=== PATIENT | female | born 1980 | race Caucasian/White ===

== ENCOUNTER 2016-12-18 20:07 | Emergency (ER) | payer OTHER ==
[2016-12-18] MEDS ORDERED: Cyclobenzaprine 10 MG Tab PO STA (20:26)
[2016-12-18] MEDS ORDERED: predniSONE 20 MG Tab PO STA (20:26)
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
[2016-12-18 21:07] VITALS: BP 111/71
== END 2016-12-18 21:08 | disposition home or self-care (01) ==
LOC: MW.ED 20:07
DX: S29.012A Strain of muscle and tendon of back wall of thorax, initial encounter (principal); S19.9XXA Unspecified injury of neck, initial encounter; M19.90 Unspecified osteoarthritis, unspecified site; F32.9 Major depressive disorder, single episode, unspecified; E03.9 Hypothyroidism, unspecified; F17.210 Nicotine dependence, cigarettes, uncomplicated; Z98.890 Other specified postprocedural states; Z79.899 Other long term (current) drug therapy; Z88.6 Allergy status to analgesic agent; Z88.8 Allergy status to other drugs, medicaments and biological substances; Z91.048 Other nonmedicinal substance allergy status; V49.9XXA Car occupant (driver) (passenger) injured in unspecified traffic accident, initial encounter; Y92.410 Unspecified street and highway as the place of occurrence of the external cause
CPT/HCPCS: 99283; A9270

== ENCOUNTER 2017-08-23 11:44 | Observation (INO) | payer BC, OTHER ==
[2017-08-23] MEDS ORDERED: Sodium Chloride 0.9% 2.5 ML Syringe FLUSH PRN (11:47)
[2017-08-23] MEDS ORDERED: Sodium Chloride 0.9% 10 ML Syringe FLUSH PRN (11:47)
[2017-08-23] MEDS ORDERED: Aspirin 81 MG Tab.Chew PO ONE (11:50)
[2017-08-23] MEDS ORDERED: Famotidine 20 MG/2 ML SDV IVPUSH ONE (11:50)
[2017-08-23] MEDS ORDERED: Sodium Chloride 0.9% 1,000 ML IV ONE (11:53)
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
[2017-08-23] MEDS: Nitroglycerin 0.4 MG Tab.SL SL PRN ×3 (12:08→12:18)
[2017-08-23] MEDS ORDERED: Acetaminophen 325 MG Tab PO ONE (12:23)
[2017-08-23 12:24] LABS: CHLORIDE,CL 104 mmol/L (98-107); SODIUM,NA 139 mmol/L (136-145)
--- NOTE | 2017-08-23 12:26 | CR ---
EXAMINATION: Portable chest radiograph. HISTORY: Shortness of breath. FINDINGS: The trachea is midline. The cardiomediastinal silhouette is within normal limits. No pulmonary infilt rates, effusions or pneumothorax. Osseous structures appear unremarkable. IMPRESSION: No acute cardiopulmonary process.
[2017-08-23] MEDS ORDERED: Acetaminophen 325 MG Tab PO PRN (13:55)
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
[2017-08-23] MEDS ORDERED: DESOGESTREL ETHINYL ESTRADIOL PO SCH (17:15)
[2017-08-23] MEDS ORDERED: Nitroglycerin 2% Oint 1 GM UD Packet TOP PRN (19:10)
[2017-08-23] MEDS ORDERED: Nicotine 21 MG/24 Hr Patch TRDERM SCH (19:15)
[2017-08-23] MEDS ORDERED: busPIRone 5 MG Tab PO SCH ×2 (21:00)
[2017-08-23] MEDS ORDERED: DESVENLAFAXINE 100 MG PO SCH (21:00)
[2017-08-23] MEDS ORDERED: Levothyroxine 50 MCG Tab PO SCH (21:00)
[2017-08-24 05:55] VITALS: BP 132/70
[2017-08-24] MEDS ORDERED: Levothyroxine 50 MCG Tab PO SCH (07:30)
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
[2017-08-24] MEDS ORDERED: Desvenlafaxine [Pristiq] 100 MG PO SCH (09:00)
== END 2017-08-24 08:25 | disposition home or self-care (01) ==
LOC: MW.ED 11:44 → MW.MS 12:55
PROVIDERS: ADMIT Internal Medicine; ATTEND Internal Medicine
DX: R07.89 Other chest pain (principal); F32.9 Major depressive disorder, single episode, unspecified; F41.9 Anxiety disorder, unspecified; F43.10 Post-traumatic stress disorder, unspecified; F17.210 Nicotine dependence, cigarettes, uncomplicated; M19.90 Unspecified osteoarthritis, unspecified site; G43.909 Migraine, unspecified, not intractable, without status migrainosus; E03.9 Hypothyroidism, unspecified; E66.9 Obesity, unspecified; Z68.32 Body mass index [BMI] 32.0-32.9, adult; Z79.3 Long term (current) use of hormonal contraceptives; Z79.899 Other long term (current) drug therapy; Z88.5 Allergy status to narcotic agent; Z91.013 Allergy to seafood; Z91.048 Other nonmedicinal substance allergy status
CPT/HCPCS: 36415; 71045; 80053; 80061; 80305; 81001; 81025; 82150; 83036; 83690; 84443; 84484; 85025; 85379; 85610; 93005; 96361; 96374; 99285; A9270; G0378; J7040

== ENCOUNTER 2018-03-12 15:57 | Day surgery (SDC) | payer BC ==
[2018-03-11 09:38] LABS: CHLORIDE,CL 102 mmol/L (98-107); SODIUM,NA 137 mmol/L (136-145)
--- NOTE | 2018-03-12 09:37 | PCM.PREANE ---
Preanesthetic Assessment - Anesthesia/Transfusion/Family Hx Anesthesia History: Prior Anesthesia Reaction (only had delayed emergence with ONE anesthetic in the for knee surgery. No other problems with her subsequent anesthetics.) Transfusion History: No Prior Transfusion(s) - Review of Systems General: No Symptoms Pulmonary: No Symptoms Cardiovascular: No Symptoms Gastrointestinal: No Symptoms Neurological: No Symptoms Other: Reports: None - Physical Assessment NPO Status Date: 03/19/18 NPO Status Time: 08:00 (ativan) Height: 1.57 m Weight: 78.471 kg ASA Class: 2 Mental Status: Alert & Oriented x3 Airway Class: Mallampati = 2 Dentition: Reports: Broken Tooth/Teeth (right upper center tooth repaired. ) Thyro-Mental Finger Breadths: 2 Mouth Opening Finger Breadths: 3 ROM/Head Extension: Full Lungs: Clear to Auscultation, Normal Respiratory Effort Cardiovascular: Regular Rate, Regular Rhythm - Lab Values: Laboratory Last Values WBC 8.48 K/uL (4.0-11.0) 03/11/18 08:57 RBC 5.00 M/uL (4.30-5.90) 03/11/18 08:57 Hgb 15.3 g/dL (12.0-16.0) 03/11/18 08:57 Hct 44.6 % (36.0-46.0) 03/11/18 08:57 MCV 89.2 fL (80.0-98.0) 03/11/18 08:57 MCH 30.6 pg (27.0-32.0) 03/11/18 08:57 MCHC 34.3 g/dL (31.0-37.0) 03/11/18 08:57 RDW Std Deviation 41.6 fl (28.0-62.0) 03/11/18 08:57 RDW Coeff of Radha 13 % (11.0-15.0) 03/11/18 08:57 Plt Count 262 K/uL (150-400) 03/11/18 08:57 MPV 10.00 fL (7.40-12.00) 03/11/18 08:57 Nucleated RBC % 0.0 /100WBC 03/11/18 08:57 Nucleated RBCs # 0 K/uL 03/11/18 08:57 Sodium 137 mmol/L (136-145) 03/11/18 08:57 Potassium 3.7 mmol/L (3.5-5.1) 03/11/18 08:57 Chloride 102 mmol/L (98-107) 03/11/18 08:57 Carbon Dioxide 26.0 mmol/L (21.0-32.0) 03/11/18 08:57 BUN 11 mg/dL (7.0-18.0) 03/11/18 08:57 Creatinine 0.7 mg/dL (0.6-1.0) 03/11/18 08:57 Est Cr Clr Drug Dosing 87.03 mL/min 03/11/18 08:57 Estimated GFR (MDRD) > 60.0 ml/min 03/11/18 08:57 Glucose 118 mg/dL (74-106) H 03/11/18 08:57 Calcium 9.8 mg/dL (8.5-10.1) 03/11/18 08:57 Total Bilirubin 0.4 mg/dL (0.2-1.0) 03/11/18 08:57 AST 10 IU/L (15-37) L 03/11/18 08:57 ALT 34 IU/L (14-63) 03/11/18 08:57 Alkaline Phosphatase 79 U/L (46-116) 03/11/18 08:57 Total Protein 8.0 g/dL (6.4-8.2) 03/11/18 08:57 Albumin 4.0 g/dL (3.4-5.0) 03/11/18 08:57 Globulin 4.0 g/dL (2.6-4.0) 03/11/18 08:57 Albumin/Globulin Ratio 1.0 (0.9-1.6) 03/11/18 08:57 HCG, Qual NEGATIVE (NEG) 03/11/18 08:57 Blood Type AB POSITIVE 03/11/18 08:57 Antibody Screen NEGATIVE 03/11/18 08:57 - Allergies Allergies/Adverse Reactions: Allergies Allergy/AdvReac Type Severity Reaction Status Date / Time hydrocodone bitartrate Allergy Anaphylactic Verified 03/07/18 09:55 [From Vicodin] Shock crab Allergy Vomiting Uncoded 03/07/18 09:55 ivory soap Allergy Hives Uncoded 03/07/18 09:55 - Acknowledgements Anesthesia Type Planned: General Anesthesia Pt an Appropriate Candidate for the Planned Anesthesia: Yes Alternatives and Risks of Anesthesia Discussed w Pt/Guardian: Yes Pt/Guardian Understands and Agrees with Anesthesia Plan: Yes PreAnesthesia Questionnaire HEENT History: Reports: None Cardiovascular History: Reports: Arrhythmia (ekg sinus rhythm, rate=88, was evaluated and started on anti-htn agents and symptoms resolved.), Hypertension Other Cardiovascular History: hx of palpitations Respiratory History: Reports: Bronchitis, Recurrent (has not used her inhalers since May 2017), Other (See Below) (chronic tobacco use) Gastrointestinal History: Reports: Other (See Below) (denies gerd) Other Gastrointestinal History: hx gastric ulcer as a child Genitourinary History: Reports: None [employer]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: Dysfunctional Uterine Bleeding, Musculoskeletal History: Reports: Arthritis Other Musculoskeletal History: states arthritis to knees and neck Neurological History: Reports: Migraines Psychiatric History: Reports: Anxiety, Depression, PTSD Endocrine/Metabolic History: Reports: Hypothyroidism, Obesity/BMI 30+ Hematologic History: Reports: None Immunologic History: Reports: None Oncologic (Cancer) History: Reports: None Dermatologic History: Reports: None - Infectious Disease History Infectious Disease History: Reports: Chicken Pox - Past Surgical History HEENT Surgical History: Reports: Naso-Sinus Surgery, Tonsillectomy GI Surgical History: Reports: Cholecystectomy Musculoskeletal Surgical History: Reports: Arthroscopic Procedure, Other (See Below) (left hand surgery) Other Musculoskeletal Surgeries/Procedures:: left knee surgery Other Surgical History Comment: wisdom teeth extraction - SUBSTANCE USE Smoking Status *Q: Current Every Day Smoker Tobacco Use Within Last Twelve Months: Cigarettes Recreational Drug Use History: Yes Recreational Drug Type: Reports: Marijuana/Hashish (last used yesterday) - HOME MEDS Home Medications: Home Meds Levothyroxine 50 mcg PO BEDTIME 12/16/13 [History] Desvenlafaxine [Pristiq] 100 mg PO BEDTIME 01/10/15 [History] busPIRone [Buspar] 30 mg PO BEDTIME 01/10/15 [History] Diclofenac Sodium 1 dose TOP QID 03/07/18 [History] Hydrochlorothiazide/Losartan [Hyzaar 50-12.5 MG] 1 tab PO DAILY 03/07/18 [ History] Lidocaine/Prilocaine [Lidocaine-Prilocaine Cream] 1 applic TOP ASDIRECTED PRN [History] Norethindrone 0.35 mg PO DAILY 03/07/18 [History] - CURRENT (IN HOUSE) MEDS Current Meds: Current Medications Lactated Ringer's (Ringers, Lactated) 1,000 mls @ 125 mls/hr IV ASDIRECTED [facility] Last Admin: 03/12/18 09:18 Dose: 125 mls/hr
--- NOTE | 2018-03-12 12:05 | PCM.OPNOTE ---
- General Post-Op/Procedure Note Date of Surgery/Procedure: 03/12/18 Operative Procedure(s): total vaginal hysterectomy with left salpingoophorectomy and cystoscopy Findings: 10 week size fibroid uterus, enlarged 5 cm left ovary, frible. Good flow from bilateral ureters on cystoscopy Pre Op Diagnosis: menorrhagia, uterine fibroids, left ovarian cyst. Post-Op Diagnosis: Same Anesthesia Technique: General ET Tube Primary Surgeon: Marimar Padron Secondary Surgeon: Mery Bhat Anesthesia Provider: Chris Granados Pathology: uterus with cervix, left tube and ovary Fluid Replacement, Intraop: 1,500 Output, Urine Amount: 100 EBL in mLs: 100 Complications: None Known Condition: Good
[2018-03-12] MEDS: Morphine 4 MG/ML Syringe IVPUSH PRN ×5 (12:34→13:09)
--- NOTE | 2018-03-12 13:11 | PCM.POSTAN ---
POST ANESTHESIA ASSESSMENT - MENTAL STATUS Mental Status: Alert, Oriented - RESPIRATORY Respiratory Status: Respiratory Rate WNL, Airway Patent, O2 Saturation Stable - CARDIOVASCULAR CV Status: Pulse Rate WNL, Blood Pressure Stable - GASTROINTESTINAL GI Status: No Symptoms - POST OP HYDRATION Hydration Status: Adequate & Stable - OBSERVATIONS Free Text/Narrative:: pt c/o persistant pain but sedation prohibits further narcotics at this time. Have treated with iv tylenol and Toradol. If increased parenteral narcotics are required for post op pain controll, I would recommend close observation with ETCO2 and SPO2 monitoring, perhaps in ICU.
--- NOTE | 2018-03-12 13:22 | PCM48HPAN ---
Post Anesthesia Note - EVALUATION WITHIN 48HRS OF ANESTHETIC Vital Signs in Normal Range: Yes Patient Participated in Evaluation: Yes Respiratory Function Stable: Yes Airway Patent: Yes Cardiovascular Function Stable: Yes Hydration Status Stable: Yes Pain Control Satisfactory: Yes Nausea and Vomiting Control Satisfactory: Yes Mental Status Recovered: Yes Pulse Rate: 92 SaO2: 97 Resp Rate: 16 Blood Pressure: 122/82 - COMMENTS/OBSERVATIONS Free Text/Narrative:: patient had nausea from vicodin, and this is charted as anaphylactic reaction to hydrocodone. Patient doing well when left alone and not stimulated. Significant history with pain symptoms in the past which were resolved without pain meds. Has had fentanyl, morphine, tylenol and toradol for pain in OR/PACU. Doing well overall.
--- NOTE | 2018-03-12 15:34 | OR ---
SURGEON: Marimar Padron M.D. DATE OF PROCEDURE: 03/12/2018 PREOPERATIVE DIAGNOSES: 1. Menorrhagia. 2. Uterine fibroids. 3. Left ovarian cyst. POSTOPERATIVE DIAGNOSES: 1. Menorrhagia. 2. Uterine fibroids. 3. Left ovarian cyst. PROCEDURE: Total vaginal hysterectomy with left salpingo-oophorectomy and cystoscopy. SALES ORDER ADMINISTRATOR: Mery Bhat M.D. ANESTHESIA: General endotracheal. FLUIDS: 1500 mL crystalloid. URINE OUTPUT: 100 mL. ESTIMATED BLOOD LOSS: 100 mL. FINDINGS: Uterus enlarged to 10 week size. Multiple uterine fibroids noted. The left ovary was enlarged to 5 cm and was removed. It was also fairly friable upon inspection. The right ovary and tube appeared normal. Upon cystoscopy, there was copious flow of bright green urine from bilateral ureteral orifices. There was no evidence of any trauma to the bladder mucosa. COMPLICATIONS: None known. DISPOSITION: Stable to recovery. BRIEF HISTORY: This is a 37-year-old female she is G3, P3. She presents with heavy periods with episodes of overflowing. This is also associated with pain during intercourse with deep penetration and severe cramping during and between her periods. She had an ultrasound ordered by Mia Castano, which showed a 3-cm right posterior fibroid, 1-cm submucosal fibroid. Endometrial thickness was 3 mm. Her bleeding has not been well controlled on oral progestin therapy and she desires to proceed with a hysterectomy. She is very concerned about a right ovarian cyst. Ultrasound was repeated as the original ultrasound was from February. This ultrasound shows a left ovarian cyst, complex in nature. One cyst measuring 2.2. The other cyst measuring 2.8 cm. I had a prolonged discussion with her regarding the ovaries as initially she said she just wanted both ovaries out. However, I explained the ovaries fulfil an important role for her and she would be surgically menopausal, which could be difficult to manage at this young age. I explained that if her ovaries appear significantly abnormal at the time of surgery that I can remove it. Alternatively, she could have a followup ultrasound in 6 weeks and very likely this is a physiologic cyst and will be resolved on its own. However, if the ovary continues to appear abnormal at the time of surgery, she does desire to have it removed. Surgical risks were discussed otherwise including bleeding, infection, injury to bowel, bladder, blood vessels, ureters or other organs, risk of thromboembolic event, risk of anesthesia, risk of change in sexual function. Understanding all these risks, she does desire to proceed. DESCRIPTION OF PROCEDURE: With the patient in dorsal lithotomy position, under adequate general endotracheal anesthesia, the abdomen, perineum, and vagina were prepped and draped in the usual fashion for vaginal surgery. SCDs were in place, Meza catheter had been in place. She received 2 g of Ancef IV. After appropriate time-out was held, weighted speculum was placed posteriorly and anterior retractor was placed. The cervix was grasped with Daylin tenaculum and circumscribed using electrocautery. The anterior cul-de-sac was easily entered using Metzenbaum scissors. The right-angled retractor was placed anteriorly. The posterior cul-de-sac was easily entered and a Jacey Auvard speculum was placed posteriorly. The uterosacral ligaments were doubly clamped, cut, and ligated using a free tie followed by Don ligature of 2-0 Polysorb. A second pedicle of the cardinal ligament complex was then doubly clamped, cut, and ligated incorporating the uterine vessels using a simple tie followed by a Don ligature of 2-0 Polysorb. The remainder utero-ovarian ligaments were then cross clamped, cut, doubly clamped and ligated using a free tie followed by a 3 point ligature of 2-0 Polysorb. The right ovary and tube were carefully inspected, appeared normal. The right pedicles were carefully inspected and were all hemostatic. The left tube and ovary were inspected. The left tube appeared normal. The left ovary was enlarged to approximately 5 cm. Upon inspection, the cyst did rupture. This fluid was collected and sent for cytology and I attempted to identify the cyst wall. However, the ovary itself and the cyst were extremely friable. Therefore, decision was made to proceed with removal of the left ovary per the patient's wishes. Therefore, the infundibulopelvic ligament was doubly clamped, cut, and the tube and ovary were removed. The pedicle was ligated using a free tie followed by a 3 point ligature of 2-0 Polysorb. This was retained for inspection. The pedicles were carefully inspected. The upper pedicles were normal and were released and were hemostatic. Adjacent to the left uterosacral ligament, there was some bleeding. This was clamped with a Rekha clamp, and ligated using a Don ligature of 2-0 Polysorb. This being completed, the area was hemostatic. The retained uterosacral ligament ligatures were ligated to the vaginal apices bilaterally. Careful inspection for hemostasis was completed with confirmation of complete hemostasis from all pedicles. Therefore, the vaginal mucosa was closed with a running lock suture of 0 Polysorb. The balloon of the Meza was deflated. The Meza catheter was removed and IV fluorescein was given as well as Lasix and there was copious flow of bright green urine from bilateral ureteral orifices upon cystoscopy and there was no evidence of any trauma to the bladder mucosa, therefore the bladder was drained. The Meza catheter was replaced. The speculum was used to inspect the vaginal cuff, which was hemostatic. Final sponge, needle, and instrument counts were reported as correct. There were no known complications. The patient was transferred to recovery in good condition. ALEJANDRO PINEDA /[id number]
[~2018-03-12 15:57] MED LIST: Acetaminophen 1,000 MG in Premix Bag 1 BAG IV ONE; Acetaminophen/oxyCODONE 325-5 MG Tab PO PRN; Dexamethasone 4 MG/ML 5 ML MDV ONE; Fluorescein 5 ML Vial ONE; Furosemide 40 MG/4 ML VIAL ONE; Glycopyrrolate 0.2 MG/ML SDV ONE; HYDROmorphone 2 MG/ML SDV IVPUSH PRN; Ketorolac 30 MG/ML SDV IVPUSH ONE; Lactated Ringers 1,000 ML IV SCH; Lidocaine/Prilocaine 2.5-2.5% Crm 5 GM Kit TOP PRN; Meperidine PF 25 MG/ML Syringe IVPUSH SCH; Midazolam 1 MG/ML 2 ML SDV ONE; Morphine 4 MG/ML Syringe IVPUSH PRN; Neostigmine Methylsulfate 1 MG/ML 5 ML Syringe ONE; Ondansetron 4 MG/2 ML SDV IVPUSH PRN; Ondansetron 4 MG/2 ML SDV ONE; Phenylephrine/Normal Saline 100 MCG/ML 10 ML Syringe ONE; Promethazine 25 MG/ML SDV IM PRN; Propofol 200 MG/20 ML SDV ONE; Rocuronium 10 MG/ML 10 ML Syringe ONE; diphenhydrAMINE 50 MG/ML SDV ONE; fentaNYL 100 MCG/2 ML SDV ONE
[2018-03-12] MEDS: Ketorolac 30 MG/ML SDV IVPUSH PRN (16:23)
[2018-03-12] MEDS: Acetaminophen/oxyCODONE 325-5 MG Tab PO PRN ×2 (17:41→22:18)
--- NOTE | 2018-03-12 17:43 | PCM.SN ---
- Free Text/Narrative Note: discussed operative findings, and removal of left ovary as it was markedly enlarged and friable. Pain is not well controlled. Required a large amount of narcotics in postop per anesthesiologist. She has had ketorolac 1 hour ago and will take second percocet now, will get her own heating pad from home. May have catheter out tonight. Vitals are stable, encourage out of bed tonight if possible. Continue postop care.
[2018-03-12] MEDS ORDERED: Levothyroxine 75 MCG Tab PO SCH (21:00)
[2018-03-12] MEDS ORDERED: Desvenlafaxine [Pristiq] 100 MG PO SCH (21:00)
[2018-03-12] MEDS ORDERED: busPIRone 5 MG Tab PO SCH (21:00)
[2018-03-13] MEDS: Morphine 4 MG/ML Syringe IVPUSH PRN (00:37)
[2018-03-13] MEDS ORDERED: diphenhydrAMINE 12.5 MG/5 ML Liquid 5 ML UD Cup PO PRN (01:08)
[2018-03-13] MEDS ORDERED: Docusate Sodium 100 MG Cap PO PRN (01:10)
[2018-03-13] MEDS: Ketorolac 30 MG/ML SDV IVPUSH PRN (04:00)
[2018-03-13 06:03] LABS: CHLORIDE,CL 105 mmol/L (98-107); SODIUM,NA 142 mmol/L (136-145)
[2018-03-13] MEDS: Acetaminophen/oxyCODONE 325-5 MG Tab PO PRN (07:49)
[2018-03-13 08:17] VITALS: BP 94/52
--- NOTE | 2018-03-13 08:23 | PCM.SURGPN ---
- General Info Date of Service: 03/13/18 Date of Surgery/Procedure: 03/12/18 POD#: 1 Post-Op Diagnosis: uterine fibroids, ovarian cyst Admission Diagnosis/Problem: Leiomyoma of uterus Functional Status: Reports: Tolerating Diet, Ambulating, Urinating. Denies: Pain Controlled (fairly well controlled, able to ambulate using non medication means to help including heating pad) - Review of Systems General: Reports: No Symptoms HEENT: Reports: No Symptoms Pulmonary: Reports: No Symptoms Cardiovascular: Reports: No Symptoms Gastrointestinal: Reports: Other (has passed small amount of gas, slightly painful) Genitourinary: Reports: No Symptoms Musculoskeletal: Reports: No Symptoms Skin: Reports: No Symptoms Neurological: Reports: No Symptoms Psychiatric: Reports: No Symptoms - Patient Data Vitals - Most Recent: Last Vital Signs Temp 36.8 C 03/13/18 08:00 Pulse 76 03/13/18 08:00 Resp 14 03/13/18 08:00 BP 94/52 L 03/13/18 08:00 Pulse Ox 96 03/13/18 08:00 Weight - Most Recent: 78.471 kg I&O - Last 24 Hours: Intake & Output 03/12/18 03/13/18 03/13/18 22:59 06:59 14:59 Intake Total 446 1580 Output Total 250 2350 Balance 196 -770 Lab Results Last 24 Hrs: Laboratory Results - last 24 hr 03/13/18 03/13/18 Range/Units 05:15 05:15 WBC 15.62 H (4.0-11.0) K/uL RBC 4.09 L (4.30-5.90) M/uL Hgb 12.3 (12.0-16.0) g/dL Hct 36.5 (36.0-46.0) % MCV 89.2 (80.0-98.0) fL MCH 30.1 (27.0-32.0) pg MCHC 33.7 (31.0-37.0) g/dL RDW Std Deviation 41.3 (28.0-62.0) fl RDW Coeff of Radha 13 (11.0-15.0) % Plt Count 269 (150-400) K/uL MPV 10.40 (7.40-12.00) fL Neut % (Auto) 79.9 (48.0-80.0) % Lymph % (Auto) 14.0 L (16.0-40.0) % [place] % (Auto) 5.9 (0.0-15.0) % Eos % (Auto) 0.1 (0.0-7.0) % Baso % (Auto) 0.1 (0.0-1.5) % Neut # (Auto) 12.5 H (1.4-5.7) K/uL Lymph # (Auto) 2.2 (0.6-2.4) K/uL [place] # (Auto) 0.9 H (0.0-0.8) K/uL Eos # (Auto) 0.0 (0.0-0.7) K/uL Baso # (Auto) 0.0 (0.0-0.1) K/uL Nucleated RBC % 0.0 /100WBC Nucleated RBCs # 0 K/uL Sodium 142 (136-145) mmol/L Potassium 3.4 L (3.5-5.1) mmol/L Chloride 105 (98-107) mmol/L Carbon Dioxide 28.9 (21.0-32.0) mmol/L BUN 8 (7.0-18.0) mg/dL Creatinine 0.7 (0.6-1.0) mg/dL Est Cr Clr Drug Dosing 87.03 mL/min Estimated GFR (MDRD) > 60.0 ml/min Glucose 139 H (74-106) mg/dL Calcium 9.3 (8.5-10.1) mg/dL Med Orders - Current: Current Medications Buspirone HCl (Buspar) 30 mg PO BEDTIME [facility] Last Admin: 03/12/18 20:34 Dose: Not Given Diphenhydramine HCl (Benadryl) 25 - 50 mg PO Q6H PRN PRN Reason: Itching Last Admin: 03/13/18 03:59 Dose: 25 mg Docusate Sodium (Colace) 100 mg PO BID PRN PRN Reason: Constipation Last Admin: 03/13/18 04:00 Dose: 100 mg HCTZ/Losartan Potassium (Hyzaar 50-12.5 Mg) 1 tab PO DAILY [facility] Last Admin: 03/12/18 20:36 Dose: 1 tab Lactated Ringer's (Ringers, Lactated) 1,000 mls @ 125 mls/hr IV ASDIRECTED [facility] Last Admin: 03/12/18 09:18 Dose: 125 mls/hr Ketorolac Tromethamine (Toradol) 30 mg IVPUSH Q6H PRN PRN Reason: Pain (severe 7-10) Stop: 03/17/18 12:06 Last Admin: 03/13/18 04:00 Dose: 30 mg Levothyroxine Sodium (Levothyroxine) 50 mcg PO BEDTIME [facility] Last Admin: 03/12/18 20:35 Dose: Not Given Lidocaine/Prilocaine (Emla Crm) 1 gm TOP ASDIRECTED PRN PRN Reason: Pain Morphine Sulfate (Morphine) 4 mg IVPUSH Q10M PRN PRN Reason: Pain (severe 7-10) Stop: 03/13/18 11:51 Last Admin: 03/13/18 00:37 Dose: 4 mg Morphine Sulfate (Morphine Sulfate) 4 mg IV Q2H PRN PRN Reason: Pain (severe 7-10) Last Admin: 03/13/18 05:50 Dose: 4 mg Ondansetron HCl (Zofran) 4 mg IVPUSH Q6H PRN PRN Reason: Nausea/Vomiting Oxycodone/Acetaminophen (Percocet 325-5 Mg) 1 tab PO Q4H PRN PRN Reason: Pain (moderate 4-6) Last Admin: 03/12/18 17:10 Dose: 1 tab Oxycodone/Acetaminophen (Percocet 325-5 Mg) 2 tab PO Q4H PRN PRN Reason: Pain (moderate 4-6) Last Admin: 03/13/18 07:49 Dose: 2 tab Desvenlafaxine [ (Pristiq] 100 Mg) 100 each PO BEDTIME [facility] Last Admin: 03/12/18 20:35 Dose: Not Given Diclofenac Sodium 1 each TOP QID [facility] Last Admin: 03/13/18 06:04 Dose: Not Given Promethazine HCl (Phenergan) 25 mg IM Q6H PRN PRN Reason: Nausea/Vomiting Discontinued Medications Dexamethasone (Dexamethasone) Confirm Administered Dose 20 mg .ROUTE .STK-MED ONE Stop: 03/12/18 10:40 Diphenhydramine HCl (Benadryl) Confirm Administered Dose 50 mg .ROUTE .STK-MED ONE Stop: 03/12/18 10:39 Fentanyl (Sublimaze) Confirm Administered Dose 100 mcg .ROUTE .STK-MED ONE Stop: 03/12/18 10:42 Fluorescein Sodium (Ak-Fluor) Confirm Administered Dose 5 ml .ROUTE .STK-MED ONE Stop: 03/12/18 11:08 Furosemide (Lasix) Confirm Administered Dose 40 mg .ROUTE .STK-MED ONE Stop: 03/12/18 11:10 Glycopyrrolate (Robinul) Confirm Administered Dose 0.2 mg .ROUTE .STK-MED ONE Stop: 03/12/18 11:22 Glycopyrrolate (Robinul) Confirm Administered Dose 0.2 mg .ROUTE .STK-MED ONE Stop: 03/12/18 11:22 Lidocaine HCl (Xylocaine-Mpf 1%) Confirm Administered Dose 5 mls @ as directed .ROUTE .STK-MED ONE Stop: 03/12/18 10:39 Acetaminophen 1,000 mg/ Premix 100 mls @ 400 mls/hr IV NOW ONE Stop: 03/12/18 12:56 Last Admin: 03/12/18 12:53 Dose: 400 mls/hr Acetaminophen (Ofirmev) Confirm Administered Dose 100 mls @ as directed IV .STK- MED ONE Stop: 03/12/18 12:51 Last Admin: 03/12/18 16:35 Dose: Not Given Ketorolac Tromethamine (Toradol) 30 mg IVPUSH ONETIME ONE Stop: 03/12/18 12:07 Last Admin: 03/12/18 12:22 Dose: 30 mg Meperidine HCl (Demerol) 12.5 mg IVPUSH .ONCE JACE Stop: 03/12/18 23:59 Midazolam HCl (Versed 1 Mg/Ml) Confirm Administered Dose 2 mg .ROUTE .STK-MED ONE Stop: 03/12/18 10:41 Morphine Sulfate (Morphine) 4 mg IVPUSH Q2H PRN PRN Reason: Pain (severe 7-10) Neostigmine Methylsulfate (Neostigmine) Confirm Administered Dose 5 mg .ROUTE .STK-MED ONE Stop: 03/12/18 11:22 Ondansetron HCl (Zofran) Confirm Administered Dose 4 mg .ROUTE .STK-MED ONE Stop: 03/12/18 10:40 Phenylephrine HCl (Phenylephrine In Ns 100 Mcg/Ml) Confirm Administered Dose 1 mg .ROUTE .STK-MED ONE Stop: 03/12/18 10:40 Propofol (Diprivan 20 Ml) Confirm Administered Dose 200 mg .ROUTE .STK-MED ONE Stop: 03/12/18 10:41 Rocuronium [place] (Zemuron) Confirm Administered Dose 100 mg .ROUTE .STK-MED ONE Stop: 03/12/18 10:40 - Exam General: Alert HEENT: Pupils Equal Lungs: Clear to Auscultation, Normal Respiratory Effort Cardiovascular: Regular Rate, Regular Rhythm GI/Abdominal Exam: Normal Bowel Sounds, Soft, Non-Tender, No Organomegaly, No Mass Extremities: Normal Inspection, Non-Tender, No Pedal Edema Skin: Warm Neurological: No New Focal Deficit Psy/Mental Status: Alert, Normal Affect, Normal Mood - Problem List & Annotations (1) Leiomyoma SNOMED Code(s): 498367431247451, 676596416875464 Code(s): D21.9 - BENIGN NEOPLASM OF CONNECTIVE AND OTHER SOFT TISSUE, UNSP Status: Acute Current Visit: Yes (2) Menorrhagia SNOMED Code(s): 470261462 Code(s): N92.0 - EXCESSIVE AND FREQUENT MENSTRUATION WITH REGULAR CYCLE Status: Acute Current Visit: Yes (3) Ovarian cyst SNOMED Code(s): 49341922 Code(s): N83.209 - UNSPECIFIED OVARIAN CYST, UNSPECIFIED SIDE Status: Acute Current Visit: Yes - Problem List Review Problem List Initiated/Reviewed/Updated: Yes - My Orders Last 24 Hours: Active Orders 24 hr Category Date Time Status Patient Status [ADT] Routine ADT 03/12/18 12:06 Active Communication Order [RC] ROUTINE Care 03/12/18 22:23 Active May Shower [RC] ASDIRECTED Care 03/12/18 12:06 Active Notify Provider Intake and Out [RC] ASDIRECTED Care 03/12/18 12:06 Active Notify Provider Vital Signs [RC] ASDIRECTED Care 03/12/18 12:06 Active Oxygen Therapy [RC] ASDIRECTED Care 03/12/18 12:06 Active RT Incentive Spirometry [RC] Q2HWA Care 03/12/18 12:06 Active Up With Assistance [RC] PER UNIT ROUTINE Care 03/12/18 12:06 Active Up ad Lakesha [RC] PER UNIT ROUTINE Care 03/12/18 12:06 Active Urinary Catheter Removal [RC] Per Unit Routine Care 03/12/18 12:06 Active Vital Signs [RC] PER UNIT ROUTINE Care 03/12/18 12:06 Active Regular Diet [DIET] Diet 03/12/18 Dinner Active Acetaminophen/oxyCODONE [Percocet 325-5 MG] Med 03/12/18 12:06 Active 1 tab PO Q4H PRN Acetaminophen/oxyCODONE [Percocet 325-5 MG] Med 03/12/18 12:06 Active 2 tab PO Q4H PRN Docusate Sodium [Colace] Med 03/13/18 01:10 Active 100 mg PO BID PRN Hydrochlorothiazide/Losartan [Hyzaar 50-12.5 MG] Med 03/13/18 09:00 Active 1 tab PO DAILY Ketorolac [Toradol] Med 03/12/18 12:06 Active 30 mg IVPUSH Q6H PRN Lactated Ringers [Ringers, Lactated] 1,000 ml Med 03/12/18 08:00 Active IV ASDIRECTED Levothyroxine Med 03/12/18 21:00 Active 50 mcg PO BEDTIME Lidocaine/Prilocaine [EMLA Crm] Med 03/12/18 12:10 Active 1 gm TOP ASDIRECTED PRN Morphine Med 03/12/18 11:50 Active 4 mg IVPUSH Q10M PRN Morphine Sulfate Med 03/12/18 15:13 Active 4 mg IV Q2H PRN Ondansetron [Zofran] Med 03/12/18 12:06 Active 4 mg IVPUSH Q6H PRN Patient's Own Medication [Ptom] Med 03/12/18 18:00 Active 1 each TOP QID Patient's Own Medication [Ptom] Med 03/12/18 21:00 Active 100 each PO BEDTIME Promethazine [Phenergan] Med 03/12/18 12:06 Active 25 mg IM Q6H PRN busPIRone [Buspar] Med 03/12/18 21:00 Active 30 mg PO BEDTIME diphenhydrAMINE [Benadryl] Med 03/13/18 01:08 Active 25 - 50 mg PO Q6H PRN Peripheral IV Discontinue [OM.PC] Routine Oth 03/12/18 12:06 Ordered Sequential Compression Device [OM.PC] Per Unit Routine Oth 03/12/18 12:06 Ordered Sequential Compression Device [OM.PC] Routine Oth 03/12/18 07:49 Ordered Resuscitation Status Routine Resus Stat 03/12/18 12:06 Ordered Medication Orders Buspirone HCl (Buspar) 30 mg PO BEDTIME [facility] Last Admin: 03/12/18 20:34 Dose: Diphenhydramine HCl (Benadryl) 25 - 50 mg PO Q6H PRN PRN Reason: Itching Last Admin: 03/13/18 03:59 Dose: 25 mg Docusate Sodium (Colace) 100 mg PO BID PRN PRN Reason: Constipation Last Admin: 03/13/18 04:00 Dose: 100 mg HCTZ/Losartan Potassium (Hyzaar 50-12.5 Mg) 1 tab PO DAILY [facility] Last Admin: 03/12/18 20:36 Dose: 1 tab Lactated Ringer's (Ringers, Lactated) 1,000 mls @ 125 mls/hr IV ASDIRECTED [facility] Last Admin: 03/12/18 09:18 Dose: 125 mls/hr Ketorolac Tromethamine (Toradol) 30 mg IVPUSH Q6H PRN PRN Reason: Pain (severe 7-10) Stop: 03/17/18 12:06 Last Admin: 03/13/18 04:00 Dose: 30 mg Admin: 03/12/18 16:23 Dose: 30 mg Levothyroxine Sodium (Levothyroxine) 50 mcg PO BEDTIME [facility] Last Admin: 03/12/18 20:35 Dose: Lidocaine/Prilocaine (Emla Crm) 1 gm TOP ASDIRECTED PRN PRN Reason: Pain Morphine Sulfate (Morphine) 4 mg IVPUSH Q10M PRN PRN Reason: Pain (severe 7-10) Stop: 03/13/18 11:51 Last Admin: 03/13/18 00:37 Dose: 4 mg Admin: 03/12/18 13:09 Dose: 2 mg Admin: 03/12/18 12:50 Dose: 2 mg Admin: 03/12/18 12:45 Dose: 2 mg Admin: 03/12/18 12:38 Dose: 2 mg Admin: 03/12/18 12:34 Dose: 2 mg Morphine Sulfate (Morphine Sulfate) 4 mg IV Q2H PRN PRN Reason: Pain (severe 7-10) Last Admin: 03/13/18 05:50 Dose: 4 mg Admin: 03/12/18 21:32 Dose: 4 mg Admin: 03/12/18 18:57 Dose: 4 mg Admin: 03/12/18 15:25 Dose: 4 mg Ondansetron HCl (Zofran) 4 mg IVPUSH Q6H PRN PRN Reason: Nausea/Vomiting Oxycodone/Acetaminophen (Percocet 325-5 Mg) 1 tab PO Q4H PRN PRN Reason: Pain (moderate 4-6) Last Admin: 03/12/18 17:10 Dose: 1 tab Oxycodone/Acetaminophen (Percocet 325-5 Mg) 2 tab PO Q4H PRN PRN Reason: Pain (moderate 4-6) Last Admin: 03/13/18 07:49 Dose: 2 tab Admin: 03/12/18 22:18 Dose: 2 tab Admin: 03/12/18 17:41 Dose: 1 tab Desvenlafaxine [ (Pristiq] 100 Mg) 100 each PO BEDTIME [facility] Last Admin: 03/12/18 20:35 Dose: Diclofenac Sodium 1 each TOP QID [facility] Last Admin: 03/13/18 06:04 Dose: Admin: 03/13/18 00:47 Dose: Admin: 03/12/18 19:40 Dose: Promethazine HCl (Phenergan) 25 mg IM Q6H PRN PRN Reason: Nausea/Vomiting - Assessment Assessment (Free Text/Narrative):: POD#1 after TVH with LSO, stable, pain management has been somewhat difficult, in recovery required large amounts of narcotics, she has chronic pain. Percocet helps somewhat, also using heating pad, has topical medications that she uses at home for chronic pain. She is tolerating Percocet well, some itching either from morphine or percocet, no rash. Itching is controlled with Benadryl. Minimal vaginal bleeding, tolerating diet, voiding and ambulating. - Plan Plan (Free Text/Narrative):: Dismiss to home today, discharge instructions reviewed.
[2018-03-13] MEDS ORDERED: Bisacodyl 10 MG Supp RECTAL ONE (08:29)
[2018-03-13] MEDS ORDERED: Hydrochlorothiazide/Losartan 12.5-50 mg Tab PO SCH ×2 (09:00→21:00)
== END 2018-03-13 10:00 | disposition home or self-care (01) ==
LOC: MW.MS 15:57 → MW.SDS 15:57 → MW.MS 16:00 → UNDOADMOB 16:00 → MW.SDS 03-13 10:00
PROVIDERS: ATTEND Obstetrics & Gynecology
DX: D25.1 Intramural leiomyoma of uterus (principal); D25.0 Submucous leiomyoma of uterus; N80.0 Endometriosis of uterus; N83.292 Other ovarian cyst, left side; N83.12 Corpus luteum cyst of left ovary; N83.02 Follicular cyst of left ovary; N73.6 Female pelvic peritoneal adhesions (postinfective); N83.8 Other noninflammatory disorders of ovary, fallopian tube and broad ligament; R11.0 Nausea; T40.2X5A Adverse effect of other opioids, initial encounter; I10 Essential (primary) hypertension; F17.210 Nicotine dependence, cigarettes, uncomplicated; E66.9 Obesity, unspecified; Z68.31 Body mass index [BMI] 31.0-31.9, adult; E03.9 Hypothyroidism, unspecified; F32.9 Major depressive disorder, single episode, unspecified; F41.9 Anxiety disorder, unspecified; Z79.890 Hormone replacement therapy; Z79.899 Other long term (current) drug therapy; Z88.5 Allergy status to narcotic agent; Z91.013 Allergy to seafood; Z91.048 Other nonmedicinal substance allergy status
CPT/HCPCS: 36415; 58262; 80048; 80053; 84703; 85025; 85027; 86850; 86900; 86901; A9270; J0131; J1100; J1200; J1885; J1940; J2250; J2270; J2370; J2405; J2704; J3010; J3490; J7120; 88104; 88307

== ENCOUNTER 2018-08-25 19:25 | Emergency (ER) | payer BC, OTHER ==
[2018-08-25] MEDS ORDERED: Sodium Chloride 0.9% 1,000 ML IV ONE (19:33)
[2018-08-25] MEDS ORDERED: Acetaminophen 500 MG Tab PO ONE (19:33)
--- NOTE | 2018-08-25 19:34 | EDM.PDOC ---
ED HPI GENERAL MEDICAL PROBLEM - General Chief Complaint: Fever Stated Complaint: SICK Time Seen by Provider: 08/25/18 19:30 - History of Present Illness INITIAL COMMENTS - FREE TEXT/NARRATIVE: HISTORY AND PHYSICAL: History of present illness: Patient 38-year-old female presents with her cough and fever over last several days she's had some body aches also associated with this she denies urinary symptoms denies chest pain abdominal pain nausea vomiting Review of systems: As per history of present illness and below otherwise all systems reviewed and negative. Past medical history: As per history of present illness and as reviewed below otherwise noncontributory. Surgical history: As per history of present illness and as reviewed below otherwise noncontributory. Social history: No reported history of drug or alcohol abuse. Family history: As per history of present illness and as reviewed below otherwise noncontributory. Physical exam: HEENT: Atraumatic, normocephalic, pupils reactive, negative for conjunctival pallor or scleral icterus, mucous membranes moist, throat clear, neck supple, nontender, trachea midline. Lungs: Clear to auscultation, breath sounds equal bilaterally, chest nontender. Heart: S1S2, regular, negative for clicks, rubs, or JVD. Abdomen: Soft, nondistended, nontender. Negative for masses or hepatosplenomegaly. Negative for costovertebral tenderness. Pelvis: Stable nontender. Genitourinary: Deferred. Rectal: Deferred. Extremities: Atraumatic, negative for cords or calf pain. Neurovascular unremarkable. Neuro: Awake, alert, oriented. Cranial nerves II through XII unremarkable. Cerebellum unremarkable. Motor and sensory unremarkable throughout. Exam nonfocal. Diagnostics: CBC CMP blood culture 2 UA chest x-ray rapid strep Therapeutics: Saline 1 L bolus Tylenol 1 g by mouth Impression: #1 fever Definitive disposition and diagnosis as appropriate pending reevaluation and review of above. - Related Data Allergies Allergy/AdvReac Type Severity Reaction Status Date / Time hydrocodone bitartrate Allergy Anaphylactic Verified 08/25/18 19:33 [From Vicodin] Shock crab Allergy Vomiting Uncoded 08/25/18 19:33 ivory soap Allergy Hives Uncoded 08/25/18 19:33 Home Meds: Home Meds Levothyroxine 50 mcg PO BEDTIME 12/16/13 [History] Desvenlafaxine [Pristiq] 100 mg PO BEDTIME 01/10/15 [History] busPIRone [Buspar] 15 mg PO BEDTIME 01/10/15 [History] Hydrochlorothiazide/Losartan [Hyzaar 50-12.5 MG] 1 tab PO BEDTIME 03/07/18 [ History] Past Medical History HEENT History: Reports: None Cardiovascular History: Reports: Arrhythmia, Hypertension Other Cardiovascular History: hx of palpitations Respiratory History: Reports: Bronchitis, Recurrent, Other (See Below) Gastrointestinal History: Reports: Other (See Below) Other Gastrointestinal History: hx gastric ulcer as a child Genitourinary History: Reports: None 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: Dysfunctional Uterine Bleeding, Musculoskeletal History: Reports: Arthritis Other Musculoskeletal History: states arthritis to knees and neck Neurological History: Reports: Migraines Psychiatric History: Reports: Anxiety, Depression, PTSD Endocrine/Metabolic History: Reports: Hypothyroidism, Obesity/BMI 30+ Hematologic History: Reports: None Immunologic History: Reports: None Oncologic (Cancer) History: Reports: None Dermatologic History: Reports: None - Infectious Disease History Infectious Disease History: Reports: Chicken Pox - Past Surgical History Head Surgeries/Procedures: Reports: None HEENT Surgical History: Reports: Naso-Sinus Surgery, Tonsillectomy GI Surgical History: Reports: Cholecystectomy Musculoskeletal Surgical History: Reports: Arthroscopic Procedure, Other (See Below) Other Musculoskeletal Surgeries/Procedures:: left knee surgery Social & Family History - Family History Family Medical History: Noncontributory - Caffeine Use Caffeine Use: Reports: Coffee - Living Situation & Occupation Occupation: Employed ED ROS GENERAL - Review of Systems Review Of Systems: ROS reveals no pertinent complaints other than HPI. ED EXAM, GENERAL - Physical Exam Exam: See Below (See dictation) Course - Vital Signs Last Recorded V/S: Last Vital Signs Temp 37.8 C 08/25/18 20:24 Pulse 93 08/25/18 20:24 Resp 26 H 08/25/18 20:24 BP 106/55 L 08/25/18 20:24 Pulse Ox 95 08/25/18 20:24 - Orders/Labs/Meds Orders: Active Orders 24 hr Category Date Time Status CULTURE BLOOD [BC] Stat Lab 08/25/18 19:40 Received CULTURE BLOOD [BC] Stat Lab 08/25/18 19:47 Received CULTURE STREP A CONFIRMATION [RM] Stat Lab 08/25/18 19:45 Results STREP SCRN A RAPID W CULT CONF [RM] Stat Lab 08/25/18 19:45 Results Blood Culture x2 Reflex Set [OM.PC] Stat Oth 08/25/18 19:37 Ordered Labs: Laboratory Tests 08/25/18 08/25/18 08/25/18 Range/Units 19:40 19:40 20:15 WBC 9.44 (4.0-11.0) K/uL RBC 4.47 (4.30-5.90) M/uL Hgb 13.4 (12.0-16.0) g/dL Hct 40.0 (36.0-46.0) % MCV 89.5 (80.0-98.0) fL MCH 30.0 (27.0-32.0) pg MCHC 33.5 (31.0-37.0) g/dL RDW Std Deviation 41.4 (28.0-62.0) fl RDW Coeff of Radha 13 (11.0-15.0) % Plt Count 179 (150-400) K/uL MPV 10.30 (7.40-12.00) fL Neut % (Auto) 82.9 H (48.0-80.0) % Lymph % (Auto) 9.7 L (16.0-40.0) % Perry % (Auto) 7.1 (0.0-15.0) % Eos % (Auto) 0.2 (0.0-7.0) % Baso % (Auto) 0.1 (0.0-1.5) % Neut # (Auto) 7.8 H (1.4-5.7) K/uL Lymph # (Auto) 0.9 (0.6-2.4) K/uL Perry # (Auto) 0.7 (0.0-0.8) K/uL Eos # (Auto) 0.0 (0.0-0.7) K/uL Baso # (Auto) 0.0 (0.0-0.1) K/uL Nucleated RBC % 0.0 /100WBC Nucleated RBCs # 0 K/uL Sodium 141 (136-145) mmol/L Potassium 3.2 L (3.5-5.1) mmol/L Chloride 105 (98-107) mmol/L Carbon Dioxide 23.4 (21.0-32.0) mmol/L BUN 10 (7.0-18.0) mg/dL Creatinine 0.7 (0.6-1.0) mg/dL Est Cr Clr Drug Dosing 94.10 mL/min Estimated GFR (MDRD) > 60.0 ml/min Glucose 170 H (74-106) mg/dL Calcium 8.5 (8.5-10.1) mg/dL Total Bilirubin 0.4 (0.2-1.0) mg/dL AST 48 H (15-37) IU/L ALT 72 H (14-63) IU/L Alkaline Phosphatase 80 (46-116) U/L Total Protein 6.8 (6.4-8.2) g/dL Albumin 3.3 L (3.4-5.0) g/dL Globulin 3.5 (2.6-4.0) g/dL Albumin/Globulin Ratio 0.9 (0.9-1.6) Urine Color DARK YELLOW Urine Appearance SLT CLOUDY Urine pH 6.0 (5.0-8.0) Ur Specific Butler >= 1.030 (1.001-1.035) Urine Protein 30 H (NEGATIVE) mg/dL Urine Glucose (UA) NEGATIVE (NEGATIVE) mg/dL Urine Ketones TRACE H (NEGATIVE) mg/dL Urine Occult Blood LARGE H (NEGATIVE) Urine Nitrite NEGATIVE (NEGATIVE) Urine Bilirubin SMALL H (NEGATIVE) Urine Ictotest NEGATIVE Urine Urobilinogen 1.0 (<2.0) EU/dL Ur Leukocyte Esterase NEGATIVE (NEGATIVE) Urine RBC 8-10 (0-2/HPF) Urine WBC 0-2 (0-5/HPF) Ur Epithelial Cells MODERATE (NONE-FEW) Urine Bacteria FEW (NEGATIVE) Meds: Medications Discontinued Medications Generic Name Dose Route Start Last Admin Trade Name Freq PRN Reason Stop Dose Admin Acetaminophen 1,000 mg 08/25/18 19:33 08/25/18 19:41 Tylenol Extra Strength PO 08/25/18 19:34 1,000 mg ONETIME ONE Administration Sodium Chloride 1,000 mls @ 999 mls/hr 08/25/18 19:33 08/25/18 19:41 Normal Saline IV 08/25/18 20:33 999 mls/hr .Bolus ONE Administration Departure - Departure Time of Disposition: 21:40 Disposition: Home, Self-Care 01 Condition: Good Clinical Impression: Pneumonia - Discharge Information Referrals: PCP,None [Primary Care Provider] - Forms: ED Department Discharge Additional Instructions: The following information is given to patients seen in the emergency department who are being discharged to home. This information is to outline your options for follow-up care. We provide all patients seen in our emergency department with a follow-up referral. The need for follow-up, as well as the timing and circumstances, are variable depending upon the specifics of your emergency department visit. If you don't have a primary care physician on staff, we will provide you with a referral. We always advise you to contact your personal physician following an emergency department visit to inform them of the circumstance of the visit and for follow-up with them and/or the need for any referrals to a consulting specialist. The emergency department will also refer you to a specialist when appropriate. This referral assures that you have the opportunity for followup care with a specialist. All of these measure are taken in an effort to provide you with optimal care, which includes your followup. Under all circumstances we always encourage you to contact your private physician who remains a resource for coordinating your care. When calling for followup care, please make the office aware that this follow-up is from your recent emergency room visit. If for any reason you are refused follow-up, please contact the [facility] emergency department at and asked to speak to the emergency department charge nurse. Augmentin as prescribed Motrin/Tylenol as directed push fluids follow up primary medical doctor as discussed and return as needed as discussed - My Orders Last 24 Hours: My Active Orders 08/25/18 19:37 Blood Culture x2 Reflex Set [OM.PC] Stat 08/25/18 19:40 CULTURE BLOOD [BC] Stat 08/25/18 19:45 CULTURE STREP A CONFIRMATION [RM] Stat STREP SCRN A RAPID W CULT CONF [RM] Stat 08/25/18 19:47 CULTURE BLOOD [BC] Stat - Assessment/Plan Last 24 Hours: My Active Orders 08/25/18 19:37 Blood Culture x2 Reflex Set [OM.PC] Stat 08/25/18 19:40 CULTURE BLOOD [BC] Stat 08/25/18 19:45 CULTURE STREP A CONFIRMATION [RM] Stat STREP SCRN A RAPID W CULT CONF [RM] Stat 08/25/18 19:47 CULTURE BLOOD [BC] Stat
[2018-08-25 20:25] LABS: CHLORIDE,CL 105 mmol/L (98-107); SODIUM,NA 141 mmol/L (136-145)
--- NOTE | 2018-08-25 20:36 | CR ---
TECHNIQUE: Portable AP chest. INDICATION: Shortness of breath, fever, body aches. COMPARISON: 08/23/2017 chest x-ray. FINDINGS: Shallow inspiration with right basilar atelectasis. Can`t exclude a subtle right lung base pneumonia. Chest otherwise negative. Dictated by Brandon Mcdonald MD @ 08/25/2018 8:35:04 PM Dictated by: Brandon Mcdonald MD @ 08/25/2018 20:35:11 (Electronically Signed)
[2018-08-25 21:56] VITALS: BP 100/45
== END 2018-08-25 21:55 | disposition home or self-care (01) ==
LOC: MW.ED 19:25
DX: J18.9 Pneumonia, unspecified organism (principal); I10 Essential (primary) hypertension; Z91.09 Other allergy status, other than to drugs and biological substances; Z88.5 Allergy status to narcotic agent; Z79.899 Other long term (current) drug therapy
CPT/HCPCS: 36415; 71045; 80053; 81001; 85025; 87040; 87081; 87880; 96360; 99283; A9270; J7040

== ENCOUNTER 2018-08-31 12:15 | Inpatient (IN) | payer BC, OTHER ==
[2018-08-31] MEDS ORDERED: Albuterol/Ipratropium 3.0-0.5 MG/3 ML Neb Soln NEB ONE (12:17)
--- NOTE | 2018-08-31 12:28 | EDM.PDOC ---
ED HPI GENERAL MEDICAL PROBLEM - General Chief Complaint: Respiratory Problem Stated Complaint: HARD TIME BREATHING Time Seen by Provider: 08/31/18 12:19 Source of Information: Reports: Patient History Limitations: Reports: No Limitations - History of Present Illness INITIAL COMMENTS - FREE TEXT/NARRATIVE: HISTORY AND PHYSICAL: History of present illness: Patient is a 38-year-old female who presents to the emergency room today with complaints of dyspnea. She was evaluated in our emergency room on 08/25/2017 and was diagnosed with pneumonia. She was given a prescription for Augmentin, states she has been compliant with her medication but has not felt any improvement. Patient denies any fever, chills, headache, change in vision, syncope or near syncope. Denies any chest pain or back pain. Denies any abdominal pain, nausea, vomiting, diarrhea, constipation or dysuria. Has not noted any blood in urine or stool. Patient has been eating and drinking appropriately. Patient is a daily pack per day smoker. Review of systems: As per history of present illness and below otherwise all systems reviewed and negative. Past medical history: As per history of present illness and as reviewed below otherwise noncontributory. Surgical history: As per history of present illness and as reviewed below otherwise noncontributory. Social history: See social history for further information Family history: As per history of present illness and as reviewed below otherwise noncontributory. Physical exam: General: Well-developed and well-nourished 38-year-old female. Alert and oriented. Nontoxic appearing does have mild respiratory distress. Vital signs have been reviewed by me. HEENT: Atraumatic, normocephalic, pupils equal and reactive bilaterally, negative for conjunctival pallor or scleral icterus, mucous membranes moist, throat clear, neck supple, nontender, trachea midline. No drooling or trismus noted. No meningeal signs. No hot potato voice noted. Lungs: Poor air exchange throughout with inspiratory wheezing to the posterior bases bilaterally breath sounds equal bilaterally, chest nontender. Heart: S1S2, regular rate and rhythm without overt murmur Abdomen: Soft, nondistended, nontender. Negative for masses or hepatosplenomegaly. Negative for costovertebral tenderness. Pelvis: Stable nontender. Skin: Intact, warm, dry. No lesions or rashes noted. Extremities: Atraumatic, moves all extremities per self without difficulty or deficits, negative for cords or calf pain. Neurovascular unremarkable. Neuro: Awake, alert, oriented. Cranial nerves II through XII unremarkable. Cerebellum unremarkable. Motor and sensory unremarkable throughout. Exam nonfocal. Notes: Patient's oxygen saturation is 88% on room air. Unable to get patient above 90% with oxygen. Chest x-ray shows a worsening right middle lobe pneumonia. New congestive heart failure or volume overload is noted. No PE noted and CT of chest. Dr Gore was consulted on this case. He is agreeable for admission and further care/ management. Patient is aware and agreeable to plan of care. CT of the chest is pending Diagnostics: CBC, CMP, D.Dimer, chest x-ray, CTA Therapeutics: Duo Neb, Solu-Medrol, IV fluids, Rocephin, Potassium Impression: Hypokalemia Pneumonia CHF Plan: [facility] Definitive disposition and diagnosis as appropriate pending reevaluation and review of above. chest Pain Score (Numeric/FACES): 5 - Related Data Allergies Allergy/AdvReac Type Severity Reaction Status Date / Time hydrocodone bitartrate Allergy Anaphylactic Verified 08/31/18 12:19 [From Vicodin] Shock crab Allergy Vomiting Uncoded 08/25/18 19:33 ivory soap Allergy Hives Uncoded 08/25/18 19:33 Home Meds: Home Meds Levothyroxine 50 mcg PO BEDTIME 12/16/13 [History] Desvenlafaxine [Pristiq] 100 mg PO BEDTIME 01/10/15 [History] busPIRone [Buspar] 15 mg PO BEDTIME 01/10/15 [History] Hydrochlorothiazide/Losartan [Hyzaar 50-12.5 MG] 1 tab PO BEDTIME 03/07/18 [ History] Past Medical History HEENT History: Reports: None Cardiovascular History: Reports: Arrhythmia, Hypertension Other Cardiovascular History: hx of palpitations Respiratory History: Reports: Bronchitis, Recurrent, Other (See Below) Gastrointestinal History: Reports: Other (See Below) Other Gastrointestinal History: hx gastric ulcer as a child Genitourinary History: Reports: None 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, Musculoskeletal History: Reports: Arthritis Other Musculoskeletal History: states arthritis to knees and neck Neurological History: Reports: Migraines Psychiatric History: Reports: Anxiety, Depression, PTSD Endocrine/Metabolic History: Reports: Hypothyroidism, Obesity/BMI 30+ Hematologic History: Reports: None Immunologic History: Reports: None Oncologic (Cancer) History: Reports: None Dermatologic History: Reports: None - Infectious Disease History Infectious Disease History: Reports: Chicken Pox - Past Surgical History Head Surgeries/Procedures: Reports: None HEENT Surgical History: Reports: Naso-Sinus Surgery, Tonsillectomy GI Surgical History: Reports: Cholecystectomy Musculoskeletal Surgical History: Reports: Arthroscopic Procedure, Other (See Below) Other Musculoskeletal Surgeries/Procedures:: left knee surgery Social & Family History - Family History Family Medical History: Noncontributory - Caffeine Use Caffeine Use: Reports: Coffee - Living Situation & Occupation Occupation: Employed ED ROS GENERAL - Review of Systems Review Of Systems: ROS reveals no pertinent complaints other than HPI. ED EXAM, GENERAL - Physical Exam Exam: See Below (See dictation) Course - Vital Signs Last Recorded V/S: Last Vital Signs Temp 97.7 F 08/31/18 12:19 Pulse 100 08/31/18 13:00 Resp 24 H 08/31/18 12:19 BP 121/79 08/31/18 12:19 Pulse Ox 90 L 08/31/18 13:00 - Orders/Labs/Meds Orders: Active Orders 24 hr Category Date Time Status Admission Status [Patient Status] [ADT] Stat ADT 08/31/18 13:12 Active RT Aerosol Therapy [RC] ASDIRECTED Care 08/31/18 12:17 Active Potassium Chloride Riders [KCL 40 MEQ in Water 100 ML] Med 08/31/18 13:07 Active 40 meq Premix Bag 1 bag IV ONETIME Sodium Chloride 0.9% [Normal Saline] 1,000 ml Med 08/31/18 12:29 Active IV STAT Medication Orders Albuterol/Ipratropium (Duoneb 3.0-0.5 Mg/3 Ml) 3 ml NEB Q4HRRT PRN PRN Reason: Shortness of Breath Sodium Chloride (Normal Saline) 1,000 mls @ 125 mls/hr IV STAT ONE Stop: 08/31/18 20:28 Last Admin: 08/31/18 13:02 Dose: 125 mls/hr Potassium Chloride 40 meq/ (Premix) 100 mls @ 25 mls/hr IV ONETIME ONE Stop: 08/31/18 17:06 Last Admin: 08/31/18 14:19 Dose: 25 mls/hr Azithromycin 500 mg/ Sodium (Chloride) 250 mls @ 250 mls/hr IV Q24H JACE Sodium Chloride (Saline Flush) 10 ml FLUSH Q4HR PRN PRN Reason: Keep Vein Open Labs: Laboratory Tests 08/31/18 08/31/18 08/31/18 Range/Units 12:31 12:31 12:31 WBC 11.52 H (4.0-11.0) K/uL RBC 4.49 (4.30-5.90) M/uL Hgb 13.0 (12.0-16.0) g/dL Hct 38.8 (36.0-46.0) % MCV 86.4 (80.0-98.0) fL MCH 29.0 (27.0-32.0) pg MCHC 33.5 (31.0-37.0) g/dL RDW Std Deviation 39.8 (28.0-62.0) fl RDW Coeff of Radha 13 (11.0-15.0) % Plt Count 315 (150-400) K/uL MPV 9.30 (7.40-12.00) fL Add Manual Diff YES Neutrophils % (Manual) 74 (48.0-80.0) % Band Neutrophils % 3 % Lymphocytes % (Manual) 12 L (16.0-40.0) % Monocytes % (Manual) 6 (0.0-15.0) % Metamyelocytes % 3 % Myelocytes % 2 % Nucleated RBC % 0.0 /100WBC Absolute Seg Neuts 8.5 H (1.4-5.7) Band Neutrophils # 0.3 Lymphocytes # (Manual) 1.4 (0.6-2.4) Monocytes # (Manual) 0.7 (0.0-0.8) Absolute Metamyelocyte 0.3 Absolute Myelocytes 0.2 Nucleated RBCs # 0 K/uL D-Dimer, Quantitative 0.83 H (0.0-0.50) mg/L FEU Sodium 138 (136-145) mmol/L Potassium 2.6 L (3.5-5.1) mmol/L Chloride 98 (98-107) mmol/L Carbon Dioxide 30.3 (21.0-32.0) mmol/L BUN 14 (7.0-18.0) mg/dL Creatinine 0.6 (0.6-1.0) mg/dL Est Cr Clr Drug Dosing 95.93 mL/min Estimated GFR (MDRD) > 60.0 ml/min Glucose 128 H (74-106) mg/dL Calcium 9.0 (8.5-10.1) mg/dL Total Bilirubin 0.4 (0.2-1.0) mg/dL AST 18 (15-37) IU/L ALT 48 (14-63) IU/L Alkaline Phosphatase 84 (46-116) U/L Total Protein 7.4 (6.4-8.2) g/dL Albumin 3.1 L (3.4-5.0) g/dL Globulin 4.3 H (2.6-4.0) g/dL Albumin/Globulin Ratio 0.7 L (0.9-1.6) Meds: Medications Generic Name Dose Route Start Last Admin Trade Name Freq PRN Reason Stop Dose Admin Albuterol/Ipratropium 3 ml 08/31/18 14:31 Duoneb 3.0-0.5 Mg/3 Ml NEB Q4HRRT PRN Shortness of Breath Sodium Chloride 1,000 mls @ 125 mls/hr 08/31/18 12:29 08/31/18 13:02 Normal Saline IV 08/31/18 20:28 125 mls/hr STAT ONE Administration Potassium Chloride 40 meq/ 100 mls @ 25 mls/hr 08/31/18 13:07 08/31/18 14:19 Premix IV 08/31/18 17:06 25 mls/hr ONETIME ONE Administration Azithromycin 500 mg/ Sodium 250 mls @ 250 mls/hr 08/31/18 14:30 Chloride IV Q24H JACE Sodium Chloride 10 ml 08/31/18 14:25 Saline Flush FLUSH Q4HR PRN Keep Vein Open Discontinued Medications Generic Name Dose Route Start Last Admin Trade Name Freq PRN Reason Stop Dose Admin Albuterol/Ipratropium 3 ml 08/31/18 12:17 08/31/18 12:24 Duoneb 3.0-0.5 Mg/3 Ml NEB 08/31/18 12:18 3 ml ONETIME ONE Administration Ceftriaxone Sodium/Dextrose 1 50 mls @ 100 mls/hr 08/31/18 12:57 08/31/18 13: 06 gm/ Premix IV 08/31/18 13:26 100 mls/hr ONETIME ONE Administration Iopamidol 50 ml 08/31/18 13:44 08/31/18 13:44 Isovue Multipack-370 (76%) IVPUSH 08/31/18 13:45 50 ml ONETIME STA Administration Methylprednisolone Sodium Succinate 125 mg 08/31/18 12:29 08/31/18 13:03 Solu-Medrol IVPUSH 08/31/18 12:30 125 mg ONETIME ONE Administration Departure - Departure Time of Disposition: 14:43 Disposition: Refer to Observation Clinical Impression: Hypokalemia Pneumonia Qualifiers: Pneumonia type: due to unspecified organism Laterality: right Lung location: middle lobe of lung Qualified Code(s): J18.1 - Lobar pneumonia, unspecified organism - Discharge Information - My Orders Last 24 Hours: My Active Orders 08/31/18 12:17 RT Aerosol Therapy [RC] ASDIRECTED 08/31/18 12:29 Sodium Chloride 0.9% [Normal Saline] 1,000 ml IV STAT 08/31/18 13:07 Potassium Chloride Riders [KCL 40 MEQ in Water 100 ML] 40 meq Premix Bag 1 bag IV ONETIME 08/31/18 13:12 Admission Status [Patient Status] [ADT] Stat - Assessment/Plan Last 24 Hours: My Active Orders 08/31/18 12:17 RT Aerosol Therapy [RC] ASDIRECTED 08/31/18 12:29 Sodium Chloride 0.9% [Normal Saline] 1,000 ml IV STAT 08/31/18 13:07 Potassium Chloride Riders [KCL 40 MEQ in Water 100 ML] 40 meq Premix Bag 1 bag IV ONETIME 08/31/18 13:12 Admission Status [Patient Status] [ADT] Stat
[2018-08-31] MEDS ORDERED: methylPREDNISolone Sodium Succinate 125 MG/2 ML SDV IVPUSH ONE (12:29)
[2018-08-31] MEDS ORDERED: Sodium Chloride 0.9% 1,000 ML IV ONE (12:29)
[2018-08-31 12:57] LABS: CHLORIDE,CL 98 mmol/L (98-107); SODIUM,NA 138 mmol/L (136-145)
[2018-08-31] MEDS ORDERED: cefTRIAXone 1 GM in Premix Bag 1 BAG IV ONE (12:57)
[2018-08-31] MEDS ORDERED: Potassium Chloride Riders 40 MEQ in Premix Bag 1 BAG IV ONE (13:07)
[2018-08-31] MEDS ORDERED: Iopamidol 755 MG/ML 500 ML Multipack Bottle IVPUSH STA (13:44)
--- NOTE | 2018-08-31 14:00 | CR ---
INDICATION: Shortness of breath with recumbent breathing. COMPARISON: 25 August 2018. FINDINGS: Worsened appearance of hazy airspace opacity in the right middle lobe. Increased pulmonary vascular prominence and mild edema. No pneumothorax or effusion. IMPRESSION : Worsening right middle lobe pneumonia. New congestive failure or volume overload. Dictated by Thom Mota MD @ Aug 31 2018 1:59PM Signed by Dr. Thom Mota @ Aug 31 2018 1:59PM
[2018-08-31] MEDS ORDERED: Sodium Chloride 0.9% 10 ML Syringe FLUSH PRN (14:25)
[2018-08-31] MEDS ORDERED: Azithromycin 500 MG in Sodium Chloride 0.9% 250 ML IV SCH ×2 (14:30→20:00)
--- NOTE | 2018-08-31 14:39 | CT ---
INDICATION: Pain and shortness of breath. Elevated D-dimer. TECHNIQUE: 50 mL Isovue-370 IV contrast. FINDINGS: Adequate bolus timing. No pulmonary emboli. Caliber of the central pulmonary arteries is normal. No right heart strain finding. Upper normal are to mildly enlarged subcarinal mediastinal lymph nodes and right hilar lymph nodes. Reticular nodular densities in a bronchovascular distribution throughout the right lung and left lower lobe with sparing of the upper lobes. Band of atelectasis in the right posterior costophrenic angle. No pneumothorax or effusion. IMPRESSION: 1. No pulmonary embolism. 2. Multi focal reticular nodule peribronchial airspace opacities. Query acute sarcoid. Hypersensitivity pneumonitis or atypical infection is a consideration as well. Pulmonology referral recommended. Follow-up CT imaging to ensure resolution recommended. Please note that all CT scans at this facility use dose modulation, iterative reconstruction, and/or weight-based dosing when appropriate to reduce radiation dose to as low as reasonably achievable. Dictated by Thom Mota MD @ Aug 31 2018 2:25PM Signed by Dr. Thom Mota @ Aug 31 2018 2:37PM
[2018-08-31] MEDS: Albuterol/Ipratropium 3.0-0.5 MG/3 ML Neb Soln NEB PRN ×2 (16:01→20:59)
[2018-08-31] MEDS ORDERED: BUSPIRONE 15 MG PO SCH (16:45)
[2018-08-31] MEDS ORDERED: busPIRone 5 MG Tab PO SCH ×2 (18:30→21:00)
[2018-08-31] MEDS: busPIRone 5 MG Tab PO SCH (21:14)
[2018-08-31] MEDS ORDERED: Potassium Chloride 20 MEQ Tab.ER PO ONE (21:34)
[2018-08-31] MEDS ORDERED: CEFTRIAXONE IV SCH (22:00)
[2018-08-31] MEDS ORDERED: DESVENLAFAXINE 100 MG PO SCH (22:15)
--- NOTE | 2018-08-31 22:16 | PCM.HP ---
H&P History of Present Illness - General Date of Service: 08/31/18 Admit Problem/Dx: Admission Diagnosis/Problem Admission Diagnosis/Problem Pneumonia - History of Present Illness Initial Comments - Free Text/Narative: 38 yo female smoker with pmh of PTSD, anxiety, and HTN who presents with a week history of shortness of breath, productive cough and fevers. PAtient was seen in the ED on 08/25/18 and was given Augment for treatment of pneumonia. Patient reports symptoms have worsened. She reported back to the ED and was noted to be hypoxic requiring 5 liters via NC to keep O2 sats in the 90s. She denies any chest pain or rashes. CT angio was negative for PE and reported multifocal reticular nodular peribronchial opacities. chest Pain Score (Numeric/FACES): 5 - Related Data Allergies/Adverse Reactions: Allergies Allergy/AdvReac Type Severity Reaction Status Date / Time hydrocodone bitartrate Allergy Anaphylactic Verified 08/31/18 14:58 [From Vicodin] Shock crab Allergy Vomiting Uncoded 08/31/18 14:58 ivory soap Allergy Hives Uncoded 08/31/18 14:58 Home Medications: Home Meds Levothyroxine 50 mcg PO BEDTIME 12/16/13 [History] Desvenlafaxine [Pristiq] 100 mg PO BEDTIME 01/10/15 [History] busPIRone [Buspar] 15 mg PO BEDTIME 01/10/15 [History] Hydrochlorothiazide/Losartan [Hyzaar 50-12.5 MG] 1 tab PO BEDTIME 03/07/18 [ History] Past Medical History HEENT History: Reports: None Cardiovascular History: Reports: Arrhythmia, Hypertension Other Cardiovascular History: hx of palpitations Respiratory History: Reports: Bronchitis, Recurrent, Other (See Below) Gastrointestinal History: Reports: Other (See Below) Other Gastrointestinal History: hx gastric ulcer as a child Genitourinary History: Reports: None 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: Dysfunctional Uterine Bleeding, Other OB/BYN History: hysterectomy in March 2018 Musculoskeletal History: Reports: Arthritis Other Musculoskeletal History: states arthritis to knees and neck Neurological History: Reports: Migraines Psychiatric History: Reports: Anxiety, Depression, PTSD Endocrine/Metabolic History: Reports: Hypothyroidism, Obesity/BMI 30+ Hematologic History: Reports: None Immunologic History: Reports: None Oncologic (Cancer) History: Reports: None Dermatologic History: Reports: None - Infectious Disease History Infectious Disease History: Reports: Chicken Pox - Past Surgical History Head Surgeries/Procedures: Reports: None HEENT Surgical History: Reports: Naso-Sinus Surgery, Tonsillectomy GI Surgical History: Reports: Cholecystectomy Musculoskeletal Surgical History: Reports: Arthroscopic Procedure, Other (See Below) Other Musculoskeletal Surgeries/Procedures:: left knee surgery Social & Family History - Family History Family Medical History: Noncontributory Respiratory: Reports: None - Tobacco Use Smoking Status *Q: Former Smoker Years of Tobacco use: 7 Packs/Tins Daily: 1 Used Tobacco, but Quit: Yes Month/Year Tobacco Last Used: 08/23/2018 Second Hand Smoke Exposure: No - Caffeine Use Caffeine Use: Reports: Coffee - Recreational Drug Use Recreational Drug Type: Reports: Marijuana/Hashish Other Recreational Drug Type: "every once in a blue allison". Recreational Drug Use Frequency: Rarely - Living Situation & Occupation Occupation: Employed H&P Review of Systems - Review of Systems: Review Of Systems: ROS reveals no pertinent complaints other than HPI. Exam - Vital Signs Vital Signs: Last Vital Signs Temp 37.0 C 08/31/18 19:00 Pulse 89 08/31/18 19:00 Resp 22 H 08/31/18 19:00 BP 107/60 08/31/18 19:00 Pulse Ox 95 08/31/18 19:00 Weight: 74.162 kg - Exam General: Alert, Oriented HEENT: Mucosa Moist & [place] Neck: Supple Lungs: Normal Respiratory Effort, Rhonchi Cardiovascular: Regular Rate, Regular Rhythm Extremities: Normal Range of Motion, Non-Tender, No Pedal Edema Skin: Warm - Patient Data Lab Results Last 24 hrs: Laboratory Results - last 24 hr 08/31/18 08/31/18 08/31/18 Range/Units 12:31 12:31 12:31 WBC 11.52 H (4.0-11.0) K/uL RBC 4.49 (4.30-5.90) M/uL Hgb 13.0 (12.0-16.0) g/dL Hct 38.8 (36.0-46.0) % MCV 86.4 (80.0-98.0) fL MCH 29.0 (27.0-32.0) pg MCHC 33.5 (31.0-37.0) g/dL RDW Std Deviation 39.8 (28.0-62.0) fl RDW Coeff of Radha 13 (11.0-15.0) % Plt Count 315 (150-400) K/uL MPV 9.30 (7.40-12.00) fL Add Manual Diff YES Neutrophils % (Manual) 74 (48.0-80.0) % Band Neutrophils % 3 % Lymphocytes % (Manual) 12 L (16.0-40.0) % Monocytes % (Manual) 6 (0.0-15.0) % Metamyelocytes % 3 % Myelocytes % 2 % Nucleated RBC % 0.0 /100WBC Absolute Seg Neuts 8.5 H (1.4-5.7) Band Neutrophils # 0.3 Lymphocytes # (Manual) 1.4 (0.6-2.4) Monocytes # (Manual) 0.7 (0.0-0.8) Absolute Metamyelocyte 0.3 Absolute Myelocytes 0.2 Nucleated RBCs # 0 K/uL D-Dimer, Quantitative 0.83 H (0.0-0.50) mg/L FEU Sodium 138 (136-145) mmol/L Potassium 2.6 L (3.5-5.1) mmol/L Chloride 98 (98-107) mmol/L Carbon Dioxide 30.3 (21.0-32.0) mmol/L BUN 14 (7.0-18.0) mg/dL Creatinine 0.6 (0.6-1.0) mg/dL Est Cr Clr Drug Dosing 95.93 mL/min Estimated GFR (MDRD) > 60.0 ml/min Glucose 128 H (74-106) mg/dL Calcium 9.0 (8.5-10.1) mg/dL Total Bilirubin 0.4 (0.2-1.0) mg/dL AST 18 (15-37) IU/L ALT 48 (14-63) IU/L Alkaline Phosphatase 84 (46-116) U/L Total Protein 7.4 (6.4-8.2) g/dL Albumin 3.1 L (3.4-5.0) g/dL Globulin 4.3 H (2.6-4.0) g/dL Albumin/Globulin Ratio 0.7 L (0.9-1.6) Result Diagrams: 08/31/18 12:31 08/31/18 12:31 Problem List Initiated/Reviewed/Updated: Yes Orders Last 24hrs: Active Orders 24 hr Category Date Time Status Admission Status [Patient Status] [ADT] Stat ADT 08/31/18 13:12 Active Antiembolic Devices [RC] PER UNIT ROUTINE Care 08/31/18 21:57 Ordered Oxygen Therapy Adult [Oxygen Therapy] [RC] ASDIRECTED Care 08/31/18 17:25 Active Oxygen Therapy [RC] PRN Care 08/31/18 21:57 Ordered RT Aerosol Therapy [RC] ASDIRECTED Care 08/31/18 12:17 Active RT Aerosol Therapy [RC] ASDIRECTED Care 08/31/18 14:32 Active Up ad Lakesha [RC] ASDIRECTED Care 08/31/18 21:56 Ordered VTE/DVT Education [RC] PER UNIT ROUTINE Care 08/31/18 21:57 Ordered Vital Signs [RC] Q4H Care 08/31/18 21:57 Ordered Regular Diet [DIET] Diet 08/31/18 Dinner Active BMP [BASIC METABOLIC PANEL,BMP] [CHEM] Routine Lab 08/31/18 21:35 Ordered CBC WITH AUTO DIFF [HEME] AM Lab 09/01/18 05:11 Ordered COMPREHENSIVE METABOLIC PN,CMP [CHEM] AM Lab 09/01/18 05:11 Ordered CULTURE SPUTUM + SMEAR [RM] Stat Lab 08/31/18 21:56 Ordered Albuterol/Ipratropium [DuoNeb 3.0-0.5 MG/3 ML] Med 08/31/18 14:31 Active 3 ml NEB Q4HRRT PRN Azithromycin [Zithromax] 500 mg Med 08/31/18 20:00 Active Sodium Chloride 0.9% [Normal Saline] 250 ml IV Q24H Heparin Sodium Med 08/31/18 22:00 Ordered 5,000 units SUBCUT Q8H Levothyroxine Med 09/01/18 21:00 Ordered 50 mcg PO BEDTIME Non-Formulary Medication [NF Drug] Med 08/31/18 21:00 Pending 0 each PO BEDTIME Sodium Chloride 0.9% [Saline Flush] Med 08/31/18 14:25 Active 10 ml FLUSH Q4HR PRN busPIRone [Buspar] Med 09/01/18 09:00 Active 15 mg PO DAILY busPIRone [Buspar] Med 08/31/18 21:00 Active 30 mg PO BEDTIME cefTRIAXone [Rocephin in Dextrose,Iso-Osm 1 GM/50 ML] Med 09/01/18 12:00 Active 50 ml IV Q24H Convert IV to Saline Lock [OM.PC] Routine Oth 08/31/18 18:30 Ordered Sequential Compression Device [OM.PC] Per Unit Routine Oth 08/31/18 21:57 Ordered Resuscitation Status Routine Resus Stat 08/31/18 21:56 Ordered Medication Orders Albuterol/Ipratropium (Duoneb 3.0-0.5 Mg/3 Ml) 3 ml NEB Q4HRRT PRN PRN Reason: Shortness of Breath Last Admin: 08/31/18 20:59 Dose: 3 ml Admin: 08/31/18 16:01 Dose: 3 ml Buspirone HCl (Buspar) 30 mg PO BEDTIME JACE Last Admin: 08/31/18 21:14 Dose: 30 mg Buspirone HCl (Buspar) 15 mg PO DAILY JACE Azithromycin 500 mg/ Sodium (Chloride) 250 mls @ 250 mls/hr IV Q24H JACE Last Admin: 08/31/18 20:17 Dose: 250 mls/hr Ceftriaxone Sodium/Dextrose (Rocephin In Dextrose,Iso-Osm 1 Gm/50 Ml) 50 mls @ 200 mls/hr IV Q24H JACE Pristiq Er 100mg (Own Med) 0 each PO BEDTIME JACE Sodium Chloride (Saline Flush) 10 ml FLUSH Q4HR PRN PRN Reason: Keep Vein Open Assessment/Plan Comment:: 38 yo female admitted for suspected community acquired pneumonia. We will treat with Rocephin and azithromycin.
[2018-08-31 22:21] LABS: CHLORIDE,CL 102 mmol/L (98-107); SODIUM,NA 138 mmol/L (136-145)
[2018-08-31] MEDS: Heparin Sodium 5,000 Units/ML Vial SUBCUT SCH (22:26)
[2018-08-31] MEDS: Levothyroxine 50 MCG Tab PO SCH (22:27)
[2018-09-01] MEDS: Albuterol/Ipratropium 3.0-0.5 MG/3 ML Neb Soln NEB PRN ×5 (01:03→19:37)
[2018-09-01] MEDS: Sodium Chloride 0.9% 1,000 ML IV SCH ×3 (02:04→13:53)
[2018-09-01] MEDS: Heparin Sodium 5,000 Units/ML Vial SUBCUT SCH ×3 (05:43→21:25)
[2018-09-01 06:28] LABS: CHLORIDE,CL 105 mmol/L (98-107); SODIUM,NA 142 mmol/L (136-145)
[2018-09-01] MEDS ORDERED: methylPREDNISolone Sodium Succinate 125 MG/2 ML SDV IVPUSH ONE ×2 (09:07→12:15)
--- NOTE | 2018-09-01 09:13 | PCM.PN ---
- General Info Date of Service: 09/01/18 - Review of Systems Systems Review Comment:: feeling the same, reports cough and shortness of breath. - Patient Data Vitals - Most Recent: Last Vital Signs Temp 36.9 C 09/01/18 08:05 Pulse 95 09/01/18 08:05 Resp 18 09/01/18 08:05 BP 101/47 L 09/01/18 08:05 Pulse Ox 95 09/01/18 08:05 Weight - Most Recent: 74.162 kg I&O - Last 24 Hours: Intake & Output 08/31/18 09/01/18 09/01/18 22:59 06:59 14:59 Intake Total 625 1748 Output Total 250 1050 Balance 375 698 Lab Results Last 24 Hours: Laboratory Results - last 24 hr 08/31/18 08/31/18 08/31/18 Range/Units 12:31 12:31 12:31 WBC 11.52 H (4.0-11.0) K/uL RBC 4.49 (4.30-5.90) M/uL Hgb 13.0 (12.0-16.0) g/dL Hct 38.8 (36.0-46.0) % MCV 86.4 (80.0-98.0) fL MCH 29.0 (27.0-32.0) pg MCHC 33.5 (31.0-37.0) g/dL RDW Std Deviation 39.8 (28.0-62.0) fl RDW Coeff of Radha 13 (11.0-15.0) % Plt Count 315 (150-400) K/uL MPV 9.30 (7.40-12.00) fL Add Manual Diff YES Neutrophils % (Manual) 74 (48.0-80.0) % Band Neutrophils % 3 % Lymphocytes % (Manual) 12 L (16.0-40.0) % Monocytes % (Manual) 6 (0.0-15.0) % Eosinophils % (Manual) (0.0-7.0) % Metamyelocytes % 3 % Myelocytes % 2 % Nucleated RBC % 0.0 /100WBC Absolute Seg Neuts 8.5 H (1.4-5.7) Band Neutrophils # 0.3 Lymphocytes # (Manual) 1.4 (0.6-2.4) Monocytes # (Manual) 0.7 (0.0-0.8) Eosinophils # (Manual) (0.0-0.7) Absolute Metamyelocyte 0.3 Absolute Myelocytes 0.2 Nucleated RBCs # 0 K/uL D-Dimer, Quantitative 0.83 H (0.0-0.50) mg/L FEU Sodium 138 (136-145) mmol/L Potassium 2.6 L (3.5-5.1) mmol/L Chloride 98 (98-107) mmol/L Carbon Dioxide 30.3 (21.0-32.0) mmol/L BUN 14 (7.0-18.0) mg/dL Creatinine 0.6 (0.6-1.0) mg/dL Est Cr Clr Drug Dosing 95.93 mL/min Estimated GFR (MDRD) > 60.0 ml/min Glucose 128 H (74-106) mg/dL Calcium 9.0 (8.5-10.1) mg/dL Magnesium (1.8-2.4) mg/dL Total Bilirubin 0.4 (0.2-1.0) mg/dL AST 18 (15-37) IU/L ALT 48 (14-63) IU/L Alkaline Phosphatase 84 (46-116) U/L Total Protein 7.4 (6.4-8.2) g/dL Albumin 3.1 L (3.4-5.0) g/dL Globulin 4.3 H (2.6-4.0) g/dL Albumin/Globulin Ratio 0.7 L (0.9-1.6) 08/31/18 08/31/18 09/01/18 Range/Units 21:56 21:56 05:52 WBC 13.02 H (4.0-11.0) K/uL RBC 3.96 L (4.30-5.90) M/uL Hgb 11.5 L (12.0-16.0) g/dL Hct 35.0 L (36.0-46.0) % MCV 88.4 (80.0-98.0) fL MCH 29.0 (27.0-32.0) pg MCHC 32.9 (31.0-37.0) g/dL RDW Std Deviation 40.9 (28.0-62.0) fl RDW Coeff of Radha 13 (11.0-15.0) % Plt Count 292 (150-400) K/uL MPV 9.30 (7.40-12.00) fL Add Manual Diff YES Neutrophils % (Manual) 66 (48.0-80.0) % Band Neutrophils % 5 % Lymphocytes % (Manual) 19 (16.0-40.0) % Monocytes % (Manual) 4 (0.0-15.0) % Eosinophils % (Manual) 1 (0.0-7.0) % Metamyelocytes % 3 % Myelocytes % 2 % Nucleated RBC % 0.0 /100WBC Absolute Seg Neuts 8.6 H (1.4-5.7) Band Neutrophils # 0.7 Lymphocytes # (Manual) 2.5 H (0.6-2.4) Monocytes # (Manual) 0.5 (0.0-0.8) Eosinophils # (Manual) 0.1 (0.0-0.7) Absolute Metamyelocyte 0.4 Absolute Myelocytes 0.3 Nucleated RBCs # 0 K/uL D-Dimer, Quantitative (0.0-0.50) mg/L FEU Sodium 138 (136-145) mmol/L Potassium 3.0 L (3.5-5.1) mmol/L Chloride 102 (98-107) mmol/L Carbon Dioxide 28.4 (21.0-32.0) mmol/L BUN 14 (7.0-18.0) mg/dL Creatinine 0.7 (0.6-1.0) mg/dL Est Cr Clr Drug Dosing 82.23 mL/min Estimated GFR (MDRD) > 60.0 ml/min Glucose 192 H (74-106) mg/dL Calcium 8.6 (8.5-10.1) mg/dL Magnesium 2.2 (1.8-2.4) mg/dL Total Bilirubin (0.2-1.0) mg/dL AST (15-37) IU/L ALT (14-63) IU/L Alkaline Phosphatase (46-116) U/L Total Protein (6.4-8.2) g/dL Albumin (3.4-5.0) g/dL Globulin (2.6-4.0) g/dL Albumin/Globulin Ratio (0.9-1.6) 09/01/18 Range/Units 05:52 WBC (4.0-11.0) K/uL RBC (4.30-5.90) M/uL Hgb (12.0-16.0) g/dL Hct (36.0-46.0) % MCV (80.0-98.0) fL MCH (27.0-32.0) pg MCHC (31.0-37.0) g/dL RDW Std Deviation (28.0-62.0) fl RDW Coeff of Radha (11.0-15.0) % Plt Count (150-400) K/uL MPV (7.40-12.00) fL Add Manual Diff Neutrophils % (Manual) (48.0-80.0) % Band Neutrophils % % Lymphocytes % (Manual) (16.0-40.0) % Monocytes % (Manual) (0.0-15.0) % Eosinophils % (Manual) (0.0-7.0) % Metamyelocytes % % Myelocytes % % Nucleated RBC % /100WBC Absolute Seg Neuts (1.4-5.7) Band Neutrophils # Lymphocytes # (Manual) (0.6-2.4) Monocytes # (Manual) (0.0-0.8) Eosinophils # (Manual) (0.0-0.7) Absolute Metamyelocyte Absolute Myelocytes Nucleated RBCs # K/uL D-Dimer, Quantitative (0.0-0.50) mg/L FEU Sodium 142 (136-145) mmol/L Potassium 3.1 L (3.5-5.1) mmol/L Chloride 105 (98-107) mmol/L Carbon Dioxide 29.9 (21.0-32.0) mmol/L BUN 10 (7.0-18.0) mg/dL Creatinine 0.5 L (0.6-1.0) mg/dL Est Cr Clr Drug Dosing 115.12 mL/min Estimated GFR (MDRD) > 60.0 ml/min Glucose 130 H (74-106) mg/dL Calcium 8.4 L (8.5-10.1) mg/dL Magnesium (1.8-2.4) mg/dL Total Bilirubin 0.3 (0.2-1.0) mg/dL AST 17 (15-37) IU/L ALT 39 (14-63) IU/L Alkaline Phosphatase 67 (46-116) U/L Total Protein 6.4 (6.4-8.2) g/dL Albumin 2.6 L (3.4-5.0) g/dL Globulin 3.8 (2.6-4.0) g/dL Albumin/Globulin Ratio 0.7 L (0.9-1.6) Zeus Results Last 24 Hours: Microbiology 08/31/18 21:56 Gram Stain - Preliminary Sputum - Expectorated Med Orders - Current: Current Medications Albuterol/Ipratropium (Duoneb 3.0-0.5 Mg/3 Ml) 3 ml NEB Q4HRRT PRN PRN Reason: Shortness of Breath Last Admin: 09/01/18 05:08 Dose: 3 ml Buspirone HCl (Buspar) 30 mg PO BEDTIME [facility] Last Admin: 08/31/18 21:14 Dose: 30 mg Buspirone HCl (Buspar) 15 mg PO DAILY [facility] Heparin Sodium (Porcine) (Heparin Sodium) 5,000 units SUBCUT Q8H [facility] Last Admin: 09/01/18 05:43 Dose: 5,000 units Ceftriaxone Sodium/Dextrose (Rocephin In Dextrose,Iso-Osm 1 Gm/50 Ml) 50 mls @ 200 mls/hr IV Q24H JACE Sodium Chloride (Normal Saline) 1,000 mls @ 125 mls/hr IV ASDIRECTED [facility] Last Admin: 09/01/18 06:01 Dose: 125 mls/hr Azithromycin 500 mg/ Sodium (Chloride) 250 mls @ 250 mls/hr IV Q24H [facility] Levothyroxine Sodium (Synthroid) 50 mcg PO BEDTIME [facility] Last Admin: 08/31/18 22:27 Dose: 50 mcg Desvenlafaxine Er 100mg Tab Own Med 0 each PO BEDTIME [facility] Sodium Chloride (Saline Flush) 10 ml FLUSH Q4HR PRN PRN Reason: Keep Vein Open Discontinued Medications Albuterol/Ipratropium (Duoneb 3.0-0.5 Mg/3 Ml) 3 ml NEB ONETIME ONE Stop: 08/31/18 12:18 Last Admin: 08/31/18 12:24 Dose: 3 ml Buspirone HCl (Buspar) 10 mg PO BID JACE Buspirone HCl (Buspar) 15 mg PO BID [facility] Last Admin: 08/31/18 18:42 Dose: Not Given Ceftriaxone Sodium (Rocephin) 1 gm IVPUSH Q24H [facility] Sodium Chloride (Normal Saline) 1,000 mls @ 125 mls/hr IV STAT ONE Stop: 08/31/18 20:28 Last Infusion: 08/31/18 14:45 Dose: 25 mls/hr Ceftriaxone Sodium/Dextrose 1 (gm/ Premix) 50 mls @ 100 mls/hr IV ONETIME ONE Stop: 08/31/18 13:26 Last Admin: 08/31/18 13:06 Dose: 100 mls/hr Potassium Chloride 40 meq/ (Premix) 100 mls @ 25 mls/hr IV ONETIME ONE Stop: 08/31/18 17:06 Last Admin: 08/31/18 14:19 Dose: 25 mls/hr Azithromycin 500 mg/ Sodium (Chloride) 250 mls @ 250 mls/hr IV Q24H [facility] Last Admin: 08/31/18 14:48 Dose: Not Given Azithromycin 500 mg/ Sodium (Chloride) 250 mls @ 250 mls/hr IV Q24H [facility] Last Admin: 08/31/18 20:17 Dose: 250 mls/hr Iopamidol (Isovue Multipack-370 (76%)) 50 ml IVPUSH ONETIME STA Stop: 08/31/18 13:45 Last Admin: 08/31/18 13:44 Dose: 50 ml Methylprednisolone Sodium Succinate (Solu-Medrol) 125 mg IVPUSH ONETIME ONE Stop: 08/31/18 12:30 Last Admin: 08/31/18 13:03 Dose: 125 mg Non-Formulary Medication (Buspirone) 15 mg PO DAILY [facility] Last Admin: 08/31/18 18:08 Dose: Not Given Desvenlafaxine Er 100mg Tab Own Med 0 each PO BEDTIME [facility] Last Admin: 08/31/18 22:28 Dose: 1 each Potassium Chloride (Klor-Con M20) 40 meq PO ONETIME ONE Stop: 08/31/18 21:35 Last Admin: 08/31/18 21:56 Dose: 40 meq - Exam General: Alert, Oriented Neck: Supple Lungs: Normal Respiratory Effort, Rhonchi Cardiovascular: Regular Rate, Regular Rhythm GI/Abdominal Exam: Soft, Non-Tender Extremities: Non-Tender, No Pedal Edema Skin: Warm, Dry, Intact Neurological: No New Focal Deficit - Problem List Review Problem List Initiated/Reviewed/Updated: Yes - My Orders Last 24 Hours: My Active Orders 08/31/18 14:25 Sodium Chloride 0.9% [Saline Flush] 10 ml FLUSH Q4HR PRN 08/31/18 14:31 Albuterol/Ipratropium [DuoNeb 3.0-0.5 MG/3 ML] 3 ml NEB Q4HRRT PRN 08/31/18 14:32 RT Aerosol Therapy [RC] ASDIRECTED 08/31/18 17:25 Oxygen Therapy Adult [Oxygen Therapy] [RC] ASDIRECTED 08/31/18 18:30 Convert IV to Saline Lock [OM.PC] Routine 08/31/18 21:00 busPIRone [Buspar] 30 mg PO BEDTIME 08/31/18 21:56 Up ad Lakesha [RC] ASDIRECTED CULTURE SPUTUM + SMEAR [RM] Stat Resuscitation Status Routine 08/31/18 21:57 Antiembolic Devices [RC] PER UNIT ROUTINE Oxygen Therapy [RC] PRN VTE/DVT Education [RC] PER UNIT ROUTINE Vital Signs [RC] Q4H Sequential Compression Device [OM.PC] Per Unit Routine 08/31/18 22:00 Heparin Sodium 5,000 units SUBCUT Q8H 08/31/18 22:15 Levothyroxine [Synthroid] 50 mcg PO BEDTIME 08/31/18 Dinner Regular Diet [DIET] 09/01/18 02:00 Sodium Chloride 0.9% [Normal Saline] 1,000 ml IV ASDIRECTED 09/01/18 08:24 Patient's Own Medication [Ptom] 0 each PO BEDTIME 09/01/18 09:00 busPIRone [Buspar] 15 mg PO DAILY 09/01/18 09:07 methylPREDNISolone Sod Succ [Solu-MEDROL] 125 mg IVPUSH ONETIME ONE 09/01/18 12:00 cefTRIAXone [Rocephin in Dextrose,Iso-Osm 1 GM/50 ML] 50 ml IV Q24H 09/01/18 20:00 Azithromycin [Zithromax] 500 mg Sodium Chloride 0.9% [Normal Saline] 250 ml IV Q24H 09/02/18 05:11 BASIC METABOLIC PANEL,BMP [CHEM] AM CBC WITH AUTO DIFF [HEME] AM 09/03/18 05:11 BASIC METABOLIC PANEL,BMP [CHEM] AM CBC WITH AUTO DIFF [HEME] AM - Plan Plan:: 38 yo female admitted for suspected community acquired pneumonia. Still requiring 5 L O2. We will continue Rocephin, azithromycin. Patient is also on duonebs and solumedrol. Sputum and blood cultures pending.
[2018-09-01] MEDS: busPIRone 5 MG Tab PO SCH ×2 (09:21→21:22)
[2018-09-01] MEDS ORDERED: CEFTRIAXONE IV SCH (12:00)
[2018-09-01] MEDS ORDERED: cefTRIAXone 1 GM Vial IVPUSH SCH (12:00)
[2018-09-01] MEDS: Benzonatate 100 MG Cap PO PRN ×2 (17:09→23:37)
[2018-09-01] MEDS: Azithromycin 500 MG in Sodium Chloride 0.9% 250 ML IV SCH (19:23)
[2018-09-01] MEDS ORDERED: Acetaminophen 325 MG Tab PO PRN (19:49)
[2018-09-01] MEDS: DESVENLAFAXINE 100 MG PO SCH (21:21)
[2018-09-01] MEDS: Levothyroxine 50 MCG Tab PO SCH (21:24)
[2018-09-02] MEDS: Sodium Chloride 0.9% 1,000 ML IV SCH (01:31)
[2018-09-02] MEDS: Albuterol/Ipratropium 3.0-0.5 MG/3 ML Neb Soln NEB PRN ×2 (02:45→10:53)
[2018-09-02] MEDS: Benzonatate 100 MG Cap PO PRN ×3 (06:01→18:15)
[2018-09-02] MEDS: Heparin Sodium 5,000 Units/ML Vial SUBCUT SCH ×3 (06:02→21:03)
[2018-09-02 06:06] LABS: CHLORIDE,CL 109 mmol/L (98-107); SODIUM,NA 144 mmol/L (136-145)
[2018-09-02] MEDS ORDERED: methylPREDNISolone Sodium Succinate 40 MG/1 ML SDV IVPUSH SCH (08:45)
--- NOTE | 2018-09-02 08:47 | PCM.PN ---
- General Info Date of Service: 09/02/18 Admission Dx/Problem (Free Text): Admission Diagnosis/Problem Admission Diagnosis/Problem Pneumonia, hypoxia Subjective Update: Continues to have production cough, with large amount of sputum. Feeling slightly improved, but remains on oxygen and is short of breath feeling. Appetite is improving and she is eating and drinking better. Functional Status: Reports: Pain Controlled, Tolerating Diet, Ambulating, Urinating - Review of Systems General: Reports: Fever (hot flashes then cold), Malaise HEENT: Denies: Headaches, Sore Throat Pulmonary: Reports: Shortness of Breath, Pleuritic Chest Pain, Cough, Sputum Cardiovascular: Reports: Dyspnea on Exertion. Denies: Chest Pain, Lightheadedness Gastrointestinal: Reports: No Symptoms. Denies: Abdominal Pain, Nausea, Vomiting Genitourinary: Reports: No Symptoms. Denies: Dysuria, Frequency, Burning Musculoskeletal: Reports: No Symptoms Skin: Reports: No Symptoms Neurological: Reports: No Symptoms Psychiatric: Reports: No Symptoms - Patient Data Vitals - Most Recent: Last Vital Signs Temp 98.2 F 09/02/18 07:56 Pulse 73 09/02/18 07:56 Resp 18 09/02/18 07:56 BP 117/65 09/02/18 07:56 Pulse Ox 96 09/02/18 07:56 Weight - Most Recent: 74.162 kg I&O - Last 24 Hours: Intake & Output 09/01/18 09/02/18 09/02/18 22:59 06:59 14:59 Intake Total 1450 2680 Output Total 950 1100 Balance 500 1580 Lab Results Last 24 Hours: Laboratory Results - last 24 hr 09/02/18 09/02/18 Range/Units 05:44 05:44 WBC 12.28 H (4.0-11.0) K/uL RBC 3.85 L (4.30-5.90) M/uL Hgb 11.4 L (12.0-16.0) g/dL Hct 34.8 L (36.0-46.0) % MCV 90.4 (80.0-98.0) fL MCH 29.6 (27.0-32.0) pg MCHC 32.8 (31.0-37.0) g/dL RDW Std Deviation 42.2 (28.0-62.0) fl RDW Coeff of Radha 13 (11.0-15.0) % Plt Count 267 (150-400) K/uL MPV 8.90 (7.40-12.00) fL Add Manual Diff YES Neutrophils % (Manual) 72 (48.0-80.0) % Band Neutrophils % 3 % Lymphocytes % (Manual) 19 (16.0-40.0) % Monocytes % (Manual) 2 (0.0-15.0) % Eosinophils % (Manual) 1 (0.0-7.0) % Metamyelocytes % 2 % Myelocytes % 1 % Nucleated RBC % 0.0 /100WBC Absolute Seg Neuts 8.8 H (1.4-5.7) Band Neutrophils # 0.4 Lymphocytes # (Manual) 2.3 (0.6-2.4) Monocytes # (Manual) 0.2 (0.0-0.8) Eosinophils # (Manual) 0.1 (0.0-0.7) Absolute Metamyelocyte 0.2 Absolute Myelocytes 0.1 Nucleated RBCs # 0 K/uL Sodium 144 (136-145) mmol/L Potassium 3.9 (3.5-5.1) mmol/L Chloride 109 H (98-107) mmol/L Carbon Dioxide 29.6 (21.0-32.0) mmol/L BUN 10 (7.0-18.0) mg/dL Creatinine 0.6 (0.6-1.0) mg/dL Est Cr Clr Drug Dosing 95.93 mL/min Estimated GFR (MDRD) > 60.0 ml/min Glucose 116 H (74-106) mg/dL Calcium 8.4 L (8.5-10.1) mg/dL Med Orders - Current: Current Medications Acetaminophen (Tylenol) 650 mg PO Q6H PRN PRN Reason: Pain Albuterol/Ipratropium (Duoneb 3.0-0.5 Mg/3 Ml) 3 ml NEB Q4HRRT PRN PRN Reason: Shortness of Breath Last Admin: 09/02/18 02:45 Dose: 3 ml Benzonatate (Tessalon Perles) 100 mg PO Q6H PRN PRN Reason: Cough Last Admin: 09/02/18 06:01 Dose: 100 mg Buspirone HCl (Buspar) 30 mg PO BEDTIME [facility] Last Admin: 09/01/18 21:22 Dose: 30 mg Buspirone HCl (Buspar) 15 mg PO DAILY [facility] Last Admin: 09/01/18 09:21 Dose: 15 mg Heparin Sodium (Porcine) (Heparin Sodium) 5,000 units SUBCUT Q8H [facility] Last Admin: 09/02/18 06:02 Dose: 5,000 units Ceftriaxone Sodium/Dextrose (Rocephin In Dextrose,Iso-Osm 1 Gm/50 Ml) 50 mls @ 200 mls/hr IV Q24H [facility]ACE Last Admin: 09/01/18 12:02 Dose: 200 mls/hr Sodium Chloride (Normal Saline) 1,000 mls @ 125 mls/hr IV ASDIRECTED [facility] Last Admin: 09/02/18 01:31 Dose: 125 mls/hr Azithromycin 500 mg/ Sodium (Chloride) 250 mls @ 250 mls/hr IV Q24H [facility] Last Admin: 09/01/18 19:23 Dose: 250 mls/hr Levothyroxine Sodium (Synthroid) 50 mcg PO BEDTIME [facility] Last Admin: 09/01/18 21:24 Dose: 50 mcg Desvenlafaxine Er 100mg Tab Own Med 0 each PO BEDTIME [facility] Last Admin: 09/01/18 21:21 Dose: 1 each Sodium Chloride (Saline Flush) 10 ml FLUSH Q4HR PRN PRN Reason: Keep Vein Open Discontinued Medications Albuterol/Ipratropium (Duoneb 3.0-0.5 Mg/3 Ml) 3 ml NEB ONETIME ONE Stop: 08/31/18 12:18 Last Admin: 08/31/18 12:24 Dose: 3 ml Buspirone HCl (Buspar) 10 mg PO BID [facility] Buspirone HCl (Buspar) 15 mg PO BID [facility] Last Admin: 08/31/18 18:42 Dose: Not Given Ceftriaxone Sodium (Rocephin) 1 gm IVPUSH Q24H [facility] Sodium Chloride (Normal Saline) 1,000 mls @ 125 mls/hr IV STAT ONE Stop: 08/31/18 20:28 Last Infusion: 08/31/18 14:45 Dose: 25 mls/hr Ceftriaxone Sodium/Dextrose 1 (gm/ Premix) 50 mls @ 100 mls/hr IV ONETIME ONE Stop: 08/31/18 13:26 Last Admin: 08/31/18 13:06 Dose: 100 mls/hr Potassium Chloride 40 meq/ (Premix) 100 mls @ 25 mls/hr IV ONETIME ONE Stop: 08/31/18 17:06 Last Admin: 08/31/18 14:19 Dose: 25 mls/hr Azithromycin 500 mg/ Sodium (Chloride) 250 mls @ 250 mls/hr IV Q24H [facility] Last Admin: 08/31/18 14:48 Dose: Not Given Azithromycin 500 mg/ Sodium (Chloride) 250 mls @ 250 mls/hr IV Q24H [facility] Last Admin: 08/31/18 20:17 Dose: 250 mls/hr Iopamidol (Isovue Multipack-370 (76%)) 50 ml IVPUSH ONETIME STA Stop: 08/31/18 13:45 Last Admin: 08/31/18 13:44 Dose: 50 ml Methylprednisolone Sodium Succinate (Solu-Medrol) 125 mg IVPUSH ONETIME ONE Stop: 08/31/18 12:30 Last Admin: 08/31/18 13:03 Dose: 125 mg Methylprednisolone Sodium Succinate (Solu-Medrol) 125 mg IVPUSH ONETIME ONE Stop: 09/01/18 09:08 Last Admin: 09/01/18 12:30 Dose: Not Given Methylprednisolone Sodium Succinate (Solu-Medrol) 125 mg IVPUSH ONETIME ONE Stop: 09/01/18 12:16 Last Admin: 09/01/18 12:26 Dose: 125 mg Non-Formulary Medication (Buspirone) 15 mg PO DAILY [facility] Last Admin: 08/31/18 18:08 Dose: Not Given Desvenlafaxine Er 100mg Tab Own Med 0 each PO BEDTIME [facility] Last Admin: 08/31/18 22:28 Dose: 1 each Potassium Chloride (Klor-Con M20) 40 meq PO ONETIME ONE Stop: 08/31/18 21:35 Last Admin: 08/31/18 21:56 Dose: 40 meq - Exam Quality Assessment: Supplemental Oxygen, DVT Prophylaxis General: Alert, Oriented, Cooperative, No Acute Distress Neck: Supple Lungs: Crackles (throughout lung hernandez.), Rhonchi. No: Normal Respiratory Effort (dyspnea with speech) Cardiovascular: Regular Rate, Regular Rhythm, No Murmurs Back Exam: Normal Inspection, Full Range of Motion Extremities: Normal Inspection, Normal Range of Motion, Non-Tender, No Pedal Edema Neurological: No New Focal Deficit Psy/Mental Status: Alert, Normal Affect, Normal Mood - Problem List & Annotations (1) Pneumonia SNOMED Code(s): 463887523 Code(s): J18.9 - PNEUMONIA, UNSPECIFIED ORGANISM Status: Acute Current Visit: Yes Qualifiers: Pneumonia type: due to unspecified organism Laterality: right Lung location: middle lobe of lung Qualified Code(s): J18.1 - Lobar pneumonia, unspecified organism (2) Hypoxia SNOMED Code(s): 630782203 Code(s): R09.02 - HYPOXEMIA Status: Acute Current Visit: Yes - Problem List Review Problem List Initiated/Reviewed/Updated: Yes - My Orders Last 24 Hours: My Active Orders 09/02/18 08:37 Patient Status [ADT] Stat 09/02/18 08:45 methylPREDNISolone Sod Succ [Solu-MEDROL] 80 mg IVPUSH Q8H - Plan Plan:: 38 yo female admitted for suspected community acquired pneumonia. 1. CAP: Feeling slightly improved. Reports Solumedrol yesterday helped breathing a lot. Productive cough remains. Oxygen weaned to 2 L NC. Will give Solumedrol 80 mg today and then Prednisone 40 mg daily, monitor. Continue Duonebs as well as Rocephin and Azithromycin. Sputum gram stain reveals mod gram positive cocci in singles pairs and clusters, moderate gram negative rods, pending final and MARIEL and blood cultures pending. VTE prophylaxis: heparin Dispo: Continues to be hypoxic, will make inpatient today.
[2018-09-02] MEDS: busPIRone 5 MG Tab PO SCH ×2 (08:49→20:01)
[2018-09-02] MEDS ORDERED: cefTRIAXone 1 GM in Premix Bag 1 BAG IV SCH (09:24)
[2018-09-02] MEDS: cefTRIAXone 1 GM in Premix Bag 1 BAG IV SCH (11:24)
[2018-09-02] MEDS: Albuterol/Ipratropium 3.0-0.5 MG/3 ML Neb Soln NEB SCH ×2 (17:17→23:07)
[2018-09-02] MEDS: Azithromycin 500 MG in Sodium Chloride 0.9% 250 ML IV SCH (19:56)
[2018-09-02] MEDS: Levothyroxine 50 MCG Tab PO SCH (20:00)
[2018-09-02] MEDS: DESVENLAFAXINE 100 MG PO SCH (20:01)
[2018-09-03] MEDS: Benzonatate 100 MG Cap PO PRN ×2 (00:48→06:26)
[2018-09-03] MEDS: Heparin Sodium 5,000 Units/ML Vial SUBCUT SCH (05:53)
[2018-09-03] MEDS: Albuterol/Ipratropium 3.0-0.5 MG/3 ML Neb Soln NEB SCH ×2 (05:57→11:25)
[2018-09-03 06:08] LABS: CHLORIDE,CL 108 mmol/L (98-107); SODIUM,NA 142 mmol/L (136-145)
[2018-09-03 07:35] VITALS: BP 99/62
[2018-09-03] MEDS ORDERED: predniSONE 20 MG Tab PO SCH (08:00)
[2018-09-03] MEDS: busPIRone 5 MG Tab PO SCH (08:11)
--- NOTE | 2018-09-03 09:28 | PCM.DCSUM1 ---
Discharge Summary - Hospital Course Brief History: 38 yo female smoker with pmh of PTSD, anxiety, and HTN who presents with a week history of shortness of breath, productive cough and fevers. Patient was seen in the ED on 08/25/18 and was given Augmentin for treatment of pneumonia. Patient reports symptoms have worsened. She reported back to the ED and was noted to be hypoxic requiring 5 liters via NC to keep O2 sats in the 90s. She denies any chest pain or rashes. CT angio was negative for PE and reported multifocal reticular nodular peribronchial opacities. Diagnosis: Stroke: No - Discharge Data Discharge Date: 09/03/18 Discharge Disposition: Home, Self-Care 01 Condition: Good - Discharge Diagnosis/Problem(s) (1) Pneumonia SNOMED Code(s): 817670878 ICD Code: J18.9 - PNEUMONIA, UNSPECIFIED ORGANISM Status: Acute Current Visit: Yes Qualifiers: Pneumonia type: due to unspecified organism Laterality: right Lung location: middle lobe of lung Qualified Code(s): J18.1 - Lobar pneumonia, unspecified organism (2) Hypoxia SNOMED Code(s): 197962539 ICD Code: R09.02 - HYPOXEMIA Status: Acute Current Visit: Yes - Discharge Plan Home Medications: Home Meds Levothyroxine 50 mcg PO BEDTIME 12/16/13 [History] Desvenlafaxine [Pristiq] 100 mg PO BEDTIME 01/10/15 [History] busPIRone [Buspar] 15 mg PO BEDTIME 01/10/15 [History] Hydrochlorothiazide/Losartan [Hyzaar 50-12.5 MG] 1 tab PO BEDTIME 03/07/18 [ History] Patient Handouts: Hypokalemia, Community-Acquired Pneumonia, Adult, Easy-to- Read Referrals: [facility] [Outside] Janeth Valencia NP [Primary Care Provider] - 09/10/18 9:15 am - Discharge Summary/Plan Comment DC Time >30 min.: No Discharge Summary/Plan Comment: Admitting Diagnoses: Acute hypoxic respiratory failure CAP Dyspnea Discharge Diagnoses: CAP Other PMH PTSD Smoker Amy was admitted and treated for CAP with Rocephin and Azithromycin. CT was obtained which revealed NO PE, it did note multifocal nodule peribronchial airspace opacities, query acute sarcoid, hypersensitivity pneumonitis or atypical infections. Recommend referral to pulmonology. She was treated with antibiotics, Solu-medrol, oxygen therapy and Duonebs. She steadily improved. BC remain negative. Sputum reveals normal respiratory lawrence. She has been weaned off oxygen and is requesting discharge home today. She is feeling better. She will be discharged home with Azithromycin and Cefdinir along with taper of Prednisone. She is encouraged to quit smoking. She will have follow up with PCP , Janeth Valencia NP and referral to pulmonology will be sent as well. - General Info Date of Service: 09/03/18 Admission Dx/Problem (Free Text: Admission Diagnosis/Problem Admission Diagnosis/Problem Pneumonia, hypoxia Subjective Update: Sitting up in bed, eating breakfast. No oxygen on. Reports she is feeling better , continues to cough, but sputum is less. Reports chest pain with coughing. Dyspnea improved. Reports increased dyspnea with laying down. Functional Status: Reports: Pain Controlled, Tolerating Diet, Ambulating, Urinating - Review of Systems General: Reports: Fatigue, Malaise (improving). Denies: Weakness Pulmonary: Reports: Pleuritic Chest Pain, Cough, Sputum (less than on admission) . Denies: Shortness of Breath, Wheezing Cardiovascular: Reports: No Symptoms. Denies: Chest Pain, Orthopnea, Edema Gastrointestinal: Reports: No Symptoms. Denies: Abdominal Pain, Nausea, Vomiting Genitourinary: Reports: No Symptoms Musculoskeletal: Reports: No Symptoms Skin: Reports: No Symptoms Neurological: Reports: No Symptoms Psychiatric: Reports: No Symptoms - Patient Data Vitals - Most Recent: Last Vital Signs Temp 97.2 F 09/03/18 07:00 Pulse 77 09/03/18 07:00 Resp 17 09/03/18 07:00 BP 99/62 09/03/18 07:00 Pulse Ox 94 L 09/03/18 07:00 Weight - Most Recent: 74.162 kg I&O - Last 24 hours: Intake & Output 09/02/18 09/03/18 09/03/18 22:59 06:59 14:59 Intake Total 1000 750 Output Total 1600 1300 Balance -600 -550 Lab Results - Last 24 hrs: Laboratory Results - last 24 hr 09/03/18 09/03/18 Range/Units 05:35 05:35 WBC 11.96 H (4.0-11.0) K/uL RBC 3.59 L (4.30-5.90) M/uL Hgb 10.4 L (12.0-16.0) g/dL Hct 32.1 L (36.0-46.0) % MCV 89.4 (80.0-98.0) fL MCH 29.0 (27.0-32.0) pg MCHC 32.4 (31.0-37.0) g/dL RDW Std Deviation 41.9 (28.0-62.0) fl RDW Coeff of Radha 13 (11.0-15.0) % Plt Count 287 (150-400) K/uL MPV 9.20 (7.40-12.00) fL Add Manual Diff YES Neutrophils % (Manual) 59 (48.0-80.0) % Band Neutrophils % 5 % Lymphocytes % (Manual) 29 (16.0-40.0) % Monocytes % (Manual) 4 (0.0-15.0) % Metamyelocytes % 2 % Myelocytes % 1 % Nucleated RBC % 0.0 /100WBC Absolute Seg Neuts 7.1 H (1.4-5.7) Band Neutrophils # 0.6 Lymphocytes # (Manual) 3.5 H (0.6-2.4) Monocytes # (Manual) 0.5 (0.0-0.8) Eosinophils # (Manual) 0.2 (0.0-0.7) Absolute Metamyelocyte 0.2 Absolute Myelocytes 0.1 Nucleated RBCs # 0 K/uL Sodium 142 (136-145) mmol/L Potassium 3.3 L (3.5-5.1) mmol/L Chloride 108 H (98-107) mmol/L Carbon Dioxide 28.1 (21.0-32.0) mmol/L BUN 15 (7.0-18.0) mg/dL Creatinine 0.7 (0.6-1.0) mg/dL Est Cr Clr Drug Dosing 82.23 mL/min Estimated GFR (MDRD) > 60.0 ml/min Glucose 103 (74-106) mg/dL Calcium 8.2 L (8.5-10.1) mg/dL MARIEL Results - Last 24 hrs: Microbiology 08/31/18 21:56 Gram Stain - Final Sputum - Expectorated Sputum Culture - Final Normal Respiratory Lawrence Med Orders - Current: Current Medications Acetaminophen (Tylenol) 650 mg PO Q6H PRN PRN Reason: Pain Last Admin: 09/03/18 06:26 Dose: 650 mg Albuterol/Ipratropium (Duoneb 3.0-0.5 Mg/3 Ml) 3 ml NEB Q6HRRT [facility] Last Admin: 09/03/18 05:57 Dose: 3 ml Benzonatate (Tessalon Perles) 100 mg PO Q6H PRN PRN Reason: Cough Last Admin: 09/03/18 06:26 Dose: 100 mg Buspirone HCl (Buspar) 30 mg PO BEDTIME [facility] Last Admin: 09/02/18 20:01 Dose: 30 mg Buspirone HCl (Buspar) 15 mg PO DAILY [facility] Last Admin: 09/03/18 08:11 Dose: 15 mg Heparin Sodium (Porcine) (Heparin Sodium) 5,000 units SUBCUT Q8H [facility] Last Admin: 09/03/18 05:53 Dose: 5,000 units Azithromycin 500 mg/ Sodium (Chloride) 250 mls @ 250 mls/hr IV Q24H [facility] Last Admin: 09/02/18 19:56 Dose: 250 mls/hr Ceftriaxone Sodium/Dextrose 1 (gm/ Premix) 50 mls @ 100 mls/hr IV Q24H [facility] Last Admin: 09/02/18 11:24 Dose: 100 mls/hr Levothyroxine Sodium (Synthroid) 50 mcg PO BEDTIME [facility] Last Admin: 09/02/18 20:00 Dose: 50 mcg Desvenlafaxine Er 100mg Tab Own Med 0 each PO BEDTIME [facility] Last Admin: 09/02/18 20:01 Dose: 1 each Prednisone (Prednisone) 40 mg PO WITHBREAKFAST [facility] Last Admin: 09/03/18 08:11 Dose: 40 mg Sodium Chloride (Saline Flush) 10 ml FLUSH Q4HR PRN PRN Reason: Keep Vein Open Discontinued Medications Albuterol/Ipratropium (Duoneb 3.0-0.5 Mg/3 Ml) 3 ml NEB ONETIME ONE Stop: 08/31/18 12:18 Last Admin: 08/31/18 12:24 Dose: 3 ml Albuterol/Ipratropium (Duoneb 3.0-0.5 Mg/3 Ml) 3 ml NEB Q4HRRT PRN PRN Reason: Shortness of Breath Last Admin: 09/02/18 10:53 Dose: 3 ml Buspirone HCl (Buspar) 10 mg PO BID [facility] Buspirone HCl (Buspar) 15 mg PO BID [facility] Last Admin: 08/31/18 18:42 Dose: Not Given Ceftriaxone Sodium (Rocephin) 1 gm IVPUSH Q24H [facility] Sodium Chloride (Normal Saline) 1,000 mls @ 125 mls/hr IV STAT ONE Stop: 08/31/18 20:28 Last Infusion: 08/31/18 14:45 Dose: 25 mls/hr Ceftriaxone Sodium/Dextrose 1 (gm/ Premix) 50 mls @ 100 mls/hr IV ONETIME ONE Stop: 08/31/18 13:26 Last Admin: 08/31/18 13:06 Dose: 100 mls/hr Potassium Chloride 40 meq/ (Premix) 100 mls @ 25 mls/hr IV ONETIME ONE Stop: 08/31/18 17:06 Last Admin: 08/31/18 14:19 Dose: 25 mls/hr Azithromycin 500 mg/ Sodium (Chloride) 250 mls @ 250 mls/hr IV Q24H [facility] Last Admin: 08/31/18 14:48 Dose: Not Given Azithromycin 500 mg/ Sodium (Chloride) 250 mls @ 250 mls/hr IV Q24H [facility] Last Admin: 08/31/18 20:17 Dose: 250 mls/hr Ceftriaxone Sodium/Dextrose (Rocephin In Dextrose,Iso-Osm 1 Gm/50 Ml) 50 mls @ 200 mls/hr IV Q24H [facility] Last Admin: 09/01/18 12:02 Dose: 200 mls/hr Sodium Chloride (Normal Saline) 1,000 mls @ 125 mls/hr IV ASDIRECTED [facility] Last Admin: 09/02/18 01:31 Dose: 125 mls/hr Ceftriaxone Sodium/Dextrose 1 (gm/ Premix) 50 mls @ 100 mls/hr IV Q24H [facility] Last Admin: 09/02/18 09:51 Dose: Not Given Iopamidol (Isovue Multipack-370 (76%)) 50 ml IVPUSH ONETIME STA Stop: 08/31/18 13:45 Last Admin: 08/31/18 13:44 Dose: 50 ml Methylprednisolone Sodium Succinate (Solu-Medrol) 125 mg IVPUSH ONETIME ONE Stop: 08/31/18 12:30 Last Admin: 08/31/18 13:03 Dose: 125 mg Methylprednisolone Sodium Succinate (Solu-Medrol) 125 mg IVPUSH ONETIME ONE Stop: 09/01/18 09:08 Last Admin: 09/01/18 12:30 Dose: Not Given Methylprednisolone Sodium Succinate (Solu-Medrol) 125 mg IVPUSH ONETIME ONE Stop: 09/01/18 12:16 Last Admin: 09/01/18 12:26 Dose: 125 mg Methylprednisolone Sodium Succinate (Solu-Medrol) 80 mg IVPUSH Q8H [facility] Last Admin: 09/02/18 08:51 Dose: 80 mg Non-Formulary Medication (Buspirone) 15 mg PO DAILY [facility] Last Admin: 08/31/18 18:08 Dose: Not Given Desvenlafaxine Er 100mg Tab Own Med 0 each PO BEDTIME [facility] Last Admin: 08/31/18 22:28 Dose: 1 each Potassium Chloride (Klor-Con M20) 40 meq PO ONETIME ONE Stop: 08/31/18 21:35 Last Admin: 08/31/18 21:56 Dose: 40 meq - Exam Quality Assessment: Reports: DVT Prophylaxis. Denies: Supplemental Oxygen General: Reports: Alert, Oriented, Cooperative, No Acute Distress Lungs: Reports: Clear to Auscultation, Normal Respiratory Effort. Denies: Decreased Breath Sounds, Crackles, Rhonchi, Wheezing Cardiovascular: Reports: Regular Rate, Regular Rhythm, No Murmurs GI/Abdominal Exam: Normal Bowel Sounds, Soft, Non-Tender, No Organomegaly, No Distention Extremities: Normal Inspection, Normal Range of Motion, Non-Tender, No Pedal Edema Neurological: Reports: No New Focal Deficit Psy/Mental Status: Reports: Alert, Normal Affect, Normal Mood
[2018-09-03] MEDS ORDERED: Potassium Chloride 20 MEQ Tab.ER PO ONE (11:32)
[2018-09-03] MEDS: cefTRIAXone 1 GM in Premix Bag 1 BAG IV SCH (12:42)
== END 2018-09-03 12:45 | disposition home or self-care (01) | DRG 139 ==
LOC: MW.ED 12:15 → MW.MS 13:36 → OBSVTOIN 09-02 08:37 → MW.MS 09-02 10:19
PROVIDERS: ADMIT Internal Medicine; ATTEND Internal Medicine
DX: J18.1 Lobar pneumonia, unspecified organism (principal); J96.01 Acute respiratory failure with hypoxia; F43.10 Post-traumatic stress disorder, unspecified; F41.9 Anxiety disorder, unspecified; F17.200 Nicotine dependence, unspecified, uncomplicated; E87.6 Hypokalemia; I11.0 Hypertensive heart disease with heart failure; I50.9 Heart failure, unspecified; F32.9 Major depressive disorder, single episode, unspecified; E03.9 Hypothyroidism, unspecified; E66.9 Obesity, unspecified; Z90.89 Acquired absence of other organs; Z79.899 Other long term (current) drug therapy; Z88.5 Allergy status to narcotic agent; Z88.8 Allergy status to other drugs, medicaments and biological substances; Z68.30 Body mass index [BMI] 30.0-30.9, adult
CPT/HCPCS: 36415; 71046; 71046-26; 71275; 71275-26; 80048; 80053; 83735; 85025; 85379; 87070; 87205; 94640; 94667; 96361; 96365; 96366; 96367; 96372; 96375; 96376; 99285-25; A4217; A9270-GY; G0378; J0456; J0696; J1644; J2920; J2930; J3480; J7040; J7050; J7620-GY; Q9967

== ENCOUNTER 2019-05-17 14:25 | Emergency (ER) | payer BC ==
--- NOTE | 2019-05-17 14:47 | EDM.PDOC ---
ED HPI GENERAL MEDICAL PROBLEM - General Chief Complaint: Laceration Stated Complaint: CUT HAND Time Seen by Provider: 05/17/19 14:26 Source of Information: Reports: Patient History Limitations: Reports: No Limitations - History of Present Illness INITIAL COMMENTS - FREE TEXT/NARRATIVE: HISTORY OF PRESENT ILLNESS: Patient is a 38-year-old female who presents to the Emergency Department with complaints of laceration. Incident occurred at home she was washing dishes and a glass that had a crack in it cut her right hand resulting in laceration to the webspace between the thumb and pointer finger.. Rates pain as 1/10 in severity. Alleviating factors: none. Denies radiation of pain. Pain is constant in nature and described as throbbing. Denies any foreign body sensation. No paresthesias. Tetanus is up to date. Denies history of diabetes. . No other medical complaints at this time. Has otherwise been in normal state of health. REVIEW OF SYSTEMS: Other than the symptoms associated with the present events, the following is reported with regard to recent health: General: (-) fever. HENT: (-) congestion. Respiratory: (-) cough. Cardiovascular: (-) chest pain. GI: (-) abdominal pain. Musculoskeletal: (-) bony pain Endocrine: (-) generalized weakness. Neurological: (-) localized weakness. Skin: (+) laceration PSYCH: (-) suicidal ideation PAST MEDICAL HISTORY: reviewed as per nursing notes SOCIAL HISTORY: reviewed as per nursing notes, MEDICATIONS: Per nurse's note ALLERGIES: Per nurse's note, reviewed by me PHYSICAL EXAMINATION: GENERALIZED APPEARANCE: well developed, well nourished, in no distress VITAL SIGNS: Per nurse's note, reviewed by me SKIN: approximately 3cm laceration with minimal subcutaneous involvement to the web space between thumb and index finger (-) pulsatile bleeding (-) obvious visible foreign body (+) clean margins (-) active discharge (-) surrounding cellulitis (-) lymphangitis. (-) fluctuance. HEAD: (-) scalp swelling, EYES: (-) conjunctival pallor, (-) scleral icterus.EOMI ENMT: airway patent: (-) stridor; mucous membranes moist. NECK: supple, (-) stiffness, CHEST AND RESPIRATORY: (-) rales, (-) rhonchi, (-) wheezes; breath sounds equal bilaterally. HEART AND CARDIOVASCULAR: (-) irregularity; (-) murmur, (-) gallop. EXTREMITIES: laceration as above. FROM. 5/5+ strength. NEURO AND PSYCH: sensation intact. Awake, alert. Cranial nerves grossly intact ; strength symmetric. gait steady. PROCEDURE: see below EMERGENCY DEPARTMENT COURSE AND TREATMENT: Patient's condition remained stable during Emergency Department evaluation. The patient presents with laceration, without evidence of significant foreign body, or neurovascular injury. Patient' s wound was aseptically prepped and draped after the wound had received local wound care including irrigation. The wound was closed without incident and the patient tolerated the procedure well. The patient was advised of risk of scar and infection, and it was felt that the risk of infection was outweighed by the need to close this wound for hemostasis and cosmoses. The patient was given wound care precautions and understands to seek medical attention immediately if there are any signs of infection. Otherwise, the patient will follow up with the primary care provider in 1-2 days for wound check and 5-7 days for suture removal. PLAN AND FOLLOW-UP: Patient received written and verbal instructions regarding this condition. Return to ED immediately with any new or worsening symptoms. Follow up to be arranged by patient with pcp in 1-2 days for wound check and in ED or with pcp in 5-7 days for suture removal Given discharge precautions. patient expressed verbal understanding. right hand Pain Score (Numeric/FACES): 2 - Related Data Allergies Allergy/AdvReac Type Severity Reaction Status Date / Time hydrocodone bitartrate Allergy Anaphylactic Verified 05/17/19 14:43 [From Vicodin] Shock crab Allergy Vomiting Uncoded 05/17/19 14:43 ivory soap Allergy Hives Uncoded 05/17/19 14:43 Home Meds: Home Meds Levothyroxine 50 mcg PO BEDTIME 12/16/13 [History] Desvenlafaxine [Pristiq] 100 mg PO BEDTIME 01/10/15 [History] busPIRone [Buspar] 45 mg PO BEDTIME 01/10/15 [History] Albuterol/Ipratropium [DuoNeb 3.0-0.5 MG/3 ML] 3 ml NEB Q6H PRN #1 box 09/03/18 [Rx] Acetaminophen/oxyCODONE [Percocet 325-5 MG] 1 tab PO Q6H PRN 05/17/19 [History] Past Medical History HEENT History: Reports: None Cardiovascular History: Reports: Arrhythmia, Hypertension Other Cardiovascular History: hx of palpitations Respiratory History: Reports: Bronchitis, Recurrent, Other (See Below) Gastrointestinal History: Reports: Other (See Below) Other Gastrointestinal History: hx gastric ulcer as a child Genitourinary History: Reports: None NEW MEDIA STRATEGIST History: Reports: Dysfunctional Uterine Bleeding, Other NEW MEDIA STRATEGIST History: hysterectomy in March 2018 Musculoskeletal History: Reports: Arthritis Other Musculoskeletal History: states arthritis to knees and neck Neurological History: Reports: Migraines Psychiatric History: Reports: Anxiety, Depression, PTSD Endocrine/Metabolic History: Reports: Hypothyroidism, Obesity/BMI 30+ Hematologic History: Reports: None Immunologic History: Reports: None Oncologic (Cancer) History: Reports: None Dermatologic History: Reports: None - Infectious Disease History Infectious Disease History: Reports: Chicken Pox - Past Surgical History Head Surgeries/Procedures: Reports: None HEENT Surgical History: Reports: Naso-Sinus Surgery, Tonsillectomy GI Surgical History: Reports: Cholecystectomy Musculoskeletal Surgical History: Reports: Arthroscopic Procedure, Other (See Below) Other Musculoskeletal Surgeries/Procedures:: left knee surgery Social & Family History - Family History Family Medical History: Noncontributory Respiratory: Reports: None - Caffeine Use Caffeine Use: Reports: Coffee - Living Situation & Occupation Occupation: Employed ED ROS GENERAL - Review of Systems Review Of Systems: See Below (see dictation) ED EXAM, SKIN/RASH Exam: See Below (see dictation) ED SKIN PROCEDURES - Laceration/Wound Repair Right Hand Appearance: Subcutaneous Distal NVT: Neuro & Vascular Intact Anesthetic Type: Local Local Anesthesia - Lidocaine (Xylocaine): 1% Plain Local Anesthetic Volume: 4cc Skin Prep: Providone-Iodine (Betadine), Other (irrigation performed by RN) Exploration/Debridement/Repair: Wound Explored, No Foreign Material Found Closed with: Sutures Lac/Wound length In cm: 3 Suture Size: 6-0 # of Sutures: 6 Suture Type: Prolene, Interrupted Sterile Dressing Applied: Nurse Tetanus Status Addressed: Yes Complications: No Course - Vital Signs Last Recorded V/S: Last Vital Signs Temp 97.5 F 05/17/19 14:40 Pulse 92 05/17/19 14:40 Resp 16 05/17/19 14:40 BP 148/108 H 05/17/19 14:40 Pulse Ox 97 05/17/19 14:40 - Orders/Labs/Meds Meds: Medications Discontinued Medications Generic Name Dose Route Start Last Admin Trade Name Reuben PRSera Reason Stop Dose Admin Lidocaine HCl 10 ml 05/17/19 14:48 Xylocaine 1% INJECT 05/17/19 14:49 ONETIME ONE Lidocaine HCl Confirm 05/17/19 14:51 05/17/19 14:54 Xylocaine-Mpf 1% Administered 05/17/19 14:52 Not Given Dose 5 ml .ROUTE .STK-MED ONE Departure - Departure Time of Disposition: 15:25 Disposition: Home, Self-Care 01 Condition: Good Clinical Impression: Laceration - Discharge Information *PRESCRIPTION DRUG MONITORING PROGRAM REVIEWED*: Not Applicable *COPY OF PRESCRIPTION DRUG MONITORING REPORT IN PATIENT LAITH: Not Applicable Instructions: Laceration Care, Adult, [id number] Referrals: Janeth Valencia RESIDENTIAL SALES ASSOCIATE [Primary Care Provider] - 2 Days Forms: ED Department Discharge Additional Instructions: The following information is given to patients seen in the emergency department who are being discharged to home. This information is to outline your options for follow-up care. We provide all patients seen in our emergency department with a follow-up referral. The need for follow-up, as well as the timing and circumstances, are variable depending upon the specifics of your emergency department visit. If you don't have a primary care physician on staff, we will provide you with a referral. We always advise you to contact your personal physician following an emergency department visit to inform them of the circumstance of the visit and for follow-up with them and/or the need for any referrals to a consulting specialist. The emergency department will also refer you to a specialist when appropriate. This referral assures that you have the opportunity for follow-up care with a specialist. All of these measure are taken in an effort to provide you with optimal care, which includes your follow-up. Under all circumstances we always encourage you to contact your private physician who remains a resource for coordinating your care. When calling for follow-up care, please make the office aware that this follow-up is from your recent emergency room visit. If for any reason you are refused follow-up, please contact the [facility] Emergency Department at and asked to speak to the emergency department charge nurse. Sepsis Event Note - Evaluation Sepsis Screening Result: No Definite Risk - Focused Exam Vital Signs: Vital Signs Temp Pulse Resp BP Pulse Ox 05/17/19 14:40 97.5 F 92 16 148/108 H 97 Date Exam was Performed: 05/17/19 Time Exam was Performed: 15:23
[2019-05-17] MEDS ORDERED: Lidocaine 1% 10 ML MDV INJECT ONE (14:48)
[2019-05-17 15:48] VITALS: BP 130/88; PULSE 73
== END 2019-05-17 15:33 | disposition home or self-care (01) ==
LOC: MW.ED 14:25
DX: S61.411A Laceration without foreign body of right hand, initial encounter (principal); I10 Essential (primary) hypertension; F41.9 Anxiety disorder, unspecified; F32.9 Major depressive disorder, single episode, unspecified; E03.9 Hypothyroidism, unspecified; E66.9 Obesity, unspecified; Z79.899 Other long term (current) drug therapy; Z91.09 Other allergy status, other than to drugs and biological substances; Z88.8 Allergy status to other drugs, medicaments and biological substances; Z91.018 Allergy to other foods; W26.8XXA Contact with other sharp object(s), not elsewhere classified, initial encounter; Y93.G1 Activity, food preparation and clean up; Y92.239 Unspecified place in hospital as the place of occurrence of the external cause
CPT/HCPCS: 12002; 99282; J2001; 99283